=== PATIENT | male | born 1945 | race Caucasian/White ===

== ENCOUNTER 2016-07-25 11:06 | Inpatient (IN) | payer MEDICARE ==
--- NOTE | 2016-07-25 11:48 | ERPHSYRPT ---
- History of Present Illness Time Seen by Provider: 07/25/16 11:36 Source: patient Exam Limitations: no limitations Patient Subjective Stated Complaint: PT ET SON REPORTS THAT PT HAS HAD INCREASED WEAKNESS OVER THE LAST FEW DAYS-PT HAS HAD INCREASED FALLS-INCREASED DIFFICUTLY WALKING-INCREASED INCONTENCE-SON REPORTS INCREASED CONFUSION AT TIMES Triage Nursing Assessment: PT PALE WARM ET [id number] QUESTIONS CORRECTLY-RESP NONLABORED-HARSH INTERMITTANT COUGH NOTED DURING TRIAGE-NO WHEEZES NOTED-ABLE TO ANSWER IN COMPLETE SENTENCES-FACIAL DROOP NOTED WHICH IS NORMAL FOR PT-BRUISING NOTED TO LEFT LOWER ABD-BOWEL SOUNDS PRESENT-BRUISING NOTED TO LEFT HAND-PULSES PRESENT Physician History: This 70-year-old white male arrives with complaint of feeling weak increased falling symptoms going on for the last couple days patient states that he is having pain on his dorsal right hand after falling he is noted to have a bruise on his left anterior lower abdomen he denies any hip pain. Family states that the patient has been having a hard time walking for the last several days and note that he has had increased problems with walking. Patient does not believe he hit his head he did fall yesterday. 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, GERD, past surgical history includes CABG, cardiac catheter, cardiac stents, hernia repair, sent in his kidney, right hip replacement, left thumb surgery Timing/Duration: other (family states patient with problems getting around for one to 2 weeks fell yesterday) Severity: moderate Modifying Factors: Worsens With: cold therapy, eating, immobilization, medication, movement, rest, acetaminophen, ibuprofen, nothing Associated Symptoms: weakness, No nausea, No vomiting, No abdominal pain, No shortness of breath, No heartburn, No diaphoresis, No cough, No chest pain, No fever, No headaches, No loss of appetite, No malaise, No rash, No syncope, No seizure Allergies/Adverse Reactions: NSAIDS (Non-Steroidal Anti-Inflamma Allergy (Verified 07/25/16 11:30) Home Medications: Amlodipine Besylate 10 mg [Norvasc 10 MG] 10 mg PO DAILY 10/14/15 [History] Aspirin/Calcium Carbonate/Mag [Aspirin Buffered 325 mg Tab] 325 mg PO DAILY 02/18 [History] Cholecalciferol (Vitamin D3) [Vitamin D] 1,000 unit PO DAILY 10/14/15 [ History] Clonidine HCl 0.2 mg PO BID 10/14/15 [History] Clopidogrel Bisulfate 75 mg [PLAVIX 75 MG Tablet] 75 mg PO DAILY 10/14/15 [History] Ezetimibe 10 mg [Zetia 10 MG] 10 mg PO DAILY 10/14/15 [History] Fluoxetine HCl 10 mg [Prozac 10 mg] 10 mg PO DAILY 10/14/15 [History] Losartan Potassium 50 mg [Cozaar 50 MG] 50 mg PO DAILY 10/14/15 [History] Omeprazole 20 MG [Prilosec 20 mg] 20 mg PO DAILY 10/14/15 [History] Tamsulosin HCl 0.4 mg PO HS 10/14/15 [History] Hx Tetanus, Diphtheria Vaccination/Date Given: Yes Hx Influenza Vaccination/Date Given: Yes Hx Pneumococcal Vaccination/Date Given: Yes Immunizations Up to Date: Yes - Review of Systems Constitutional: No Fever, No Chills Eyes: No Symptoms Ears, Nose, & Throat: No Symptoms Respiratory: No Cough, No Dyspnea Cardiac: No Chest Pain, No Edema, No Syncope Abdominal/Gastrointestinal: Other (bruising left anterior abdomen), No Abdominal Pain, No Nausea, No Vomiting, No Diarrhea Genitourinary Symptoms: No Dysuria Musculoskeletal: Other (pain right hand) Skin: No Rash Neurological: Other (trouble walking for the last week or so falling) Psychological: No Symptoms Endocrine: No Symptoms All Other Systems: Reviewed and Negative - Past Medical History Pertinent Past Medical History: Yes Neurological History: Stroke ENT History: Other Cardiac History: High Cholesterol, Hypertension, Myocardial Infarction ([place]), Other Respiratory History: No Pertinent History Endocrine Medical History: No Pertinent History Musculoskeletal History: Arthritis, Fractures GI Medical History: GERD History: Other Psycho-Social History: No Pertinent History Male Reproductive Disorders: No Pertinent History Other Medical History: CABG 1999, URETER STENT 2001, BRAIN STEM CVA, HERNIA REPAIR. BLIND IN LEFT EYE - Past Surgical History Past Surgical History: Yes Neuro Surgical History: No Pertinent History Cardiac: Angioplasty, CABG, Cardiac Catheterization, Cardiac Stent Respiratory: No Pertinent History Gastrointestinal: Hernia Repair Genitourinary: Other Musculoskeletal: Joint Replacement, Other Male Surgical History: No Pertinent History Other Surgical History: STENT IN KIDNEY, CABG 1999, R Hip replacement, L thumb surgical repair w/ pin. - Social History Smoking Status: Former smoker Exposure to second hand smoke: No Drug Use: none Patient Lives Alone: No - Nursing Vital Signs Nursing Vital Signs: Initial Vital Signs Temperature 98.5 F Temperature Source Oral Pulse Rate 63 Respiratory Rate 16 Blood Pressure [Right Arm] 103/69 Pain Intensity 0 - Physical Exam General Appearance: no apparent distress, alert Eye Exam: PERRL/EOMI, other (patient's left eye deviates laterally (chronic)) Ears, Nose, Throat Exam: normal ENT inspection, TMs normal, pharynx normal, moist mucous membranes Neck Exam: normal inspection, non-tender, supple, full range of motion Respiratory Exam: normal breath sounds, lungs clear, No respiratory distress Cardiovascular Exam: regular rate/rhythm, normal heart sounds, normal peripheral pulses Gastrointestinal/Abdomen Exam: soft, normal bowel sounds, other (4 cm hematoma left anterior abdomen) Back Exam: normal inspection, normal range of motion, No CVA tenderness, No vertebral tenderness Extremity Exam: other (left hand with erythema and tenderness overlying the second metacarpal phalangeal joint) Neurologic Exam: alert, oriented x 3, cooperative, normal mood/affect, nml cerebellar function, nml station & gait, sensation nml, other (left eye deviates laterally chronically), No motor deficits Skin Exam: normal color, warm, dry, No rash Lymphatic Exam: No adenopathy SpO2 Interpretation: normal (99%) SpO2: 99 Oxygen Delivery: Room Air - Course Nursing assessment & vital signs reviewed: Yes EKG Interpreted by Me: RATE (70 bpm), Other (EKG sinus arrhythmia 70 beats for minute right axis deviation right bundle branch block no acute ST or T wave changes compared to October 25, 2015) - Radiology Exams Left Hand X-ray Interpretation: Discussed w/ radiologist (x-ray left hand: Minimally angulated acute fracture involving the head of the second metacarpal with adjacent soft tissue swelling. Elsewhere, osteeopenia, old proximal thumb fracture, and mild degenerative changes of the base of the first metacarpal) Chest X-ray Interpretation: Discussed w/ radiologist (chest x-ray: Impression: Stable nonacute chest with chronic features) - CT Exams Head CT Interpretation: Discussed w/radiologist (CT head: Again, nonacute senile brain again with old infarcts. New pansinusitis) Ordered Tests: Active Orders 24 hr Category Date Time Status Bedrest ROUTINE Activity 07/25/16 14:05 Active Accucheck STAT Care 07/25/16 11:42 Completed Admission/Status Order ROUTINE Care 07/25/16 14:05 Active Call Admit Doctor for Orders ON ADMISSION Care 07/25/16 14:05 Active Code Status Order ROUTINE Care 07/25/16 14:05 Active EKG-ER Only STAT Care 07/25/16 11:42 Completed IV Care Q6H Care 07/25/16 14:05 Active IV Insertion STAT Care 07/25/16 11:42 Completed Splint STAT Care 07/25/16 13:07 Completed Telemetry ROUTINE Care 07/25/16 14:05 Active Cardiac Diet Diet 07/25/16 Dinner Active CHEST 1 VIEW (PORTABLE) Stat Exams 07/25/16 11:42 Completed HAND (MINIMUM 3 VIEWS) Stat Exams 07/25/16 11:49 Completed HEAD WITHOUT CONTRAST [CT] Stat Exams 07/25/16 11:42 Completed CBC W DIFF AM.LAB Lab 07/26/16 04:00 Ordered CBC W DIFF Stat Lab 07/25/16 11:50 Completed CMP AM.LAB Lab 07/26/16 04:00 Ordered CMP Stat Lab 07/25/16 11:50 Completed TROPONIN Stat Lab 07/25/16 11:50 Completed UA Stat Lab 07/25/16 11:42 Ordered Transfer Order Routine Transfer 07/25/16 13:28 Completed Medication Summary Generic Name Dose Route Start Last Admin Trade Name Freq PRN Reason Stop Dose Admin Potassium Chloride 100 mls @ 50 mls/hr 07/25/16 14:05 Potassium Chloride 20 Meq In Water 100ml IV 07/25/16 18:04 Q2H KRYSTIAN Discontinued Medications Generic Name Dose Route Start Last Admin Trade Name Freq PRN Reason Stop Dose Admin Potassium Bicarbonate 50 meq 07/25/16 12:48 07/25/16 12:58 K-Lyte 25 Meq PO 07/25/16 12:49 50 meq STAT ONE Administration Potassium Bicarbonate Confirm 07/25/16 12:52 K-Lyte 25 Meq Administered 07/25/16 12:53 Dose 50 meq .ROUTE .STK-MED ONE Lab/Rad Data: Laboratory Result Diagrams 07/25/16 11:50 07/25/16 11:50 Laboratory Results 07/25/16 07/25/16 07/25/16 Range/Units 11:50 11:50 11:50 WBC 7.1 (4.0-10.5) K/mm3 RBC 5.23 (4.1-5.6) M/mm3 Hgb 14.2 (12.5-18.0) gm/dl Hct 41.9 L (42-50) % MCV 80.1 (78-100) fl MCH 27.2 (26-32) pg MCHC 33.9 (32-36) g/dl RDW 15.6 H (11.5-14.0) % Plt Count 166 (150-450) K/mm3 MPV 9.9 H (6-9.5) fl Gran % 73.3 H (36.0-66.0) % Lymphocytes % 15.5 L (24.0-44.0) % Monocytes % 9.3 (0.0-12.0) % Eosinophils % 1.8 (0.00-5.0) % Basophils % 0.1 (0.0-0.4) % Basophils # 0.01 (0-0.4) Sodium 126 L (136-145) mEq/L Potassium 2.6 L* (3.5-5.1) mEq/L Chloride 97 L (98-107) mEq/L Carbon Dioxide 18.6 L (21-32) mEq/L Anion Gap 12.3 (5-15) MEQ/L BUN 21 H (9-20) mg/dL Creatinine 1.61 H (0.55-1.30) mg/dl Estimated GFR 45 ML/MIN Glucose 104 (70-110) MG/DL Calcium 8.4 L (8.5-10.1) mg/dL Total Bilirubin 0.5 (0.2-1.0) mg/dL AST 24 (15-37) U/L ALT 15 (12-78) U/L Alkaline Phosphatase 104 (46-116) U/L Troponin I 0.073 H* (0.000-0.056) ng/ml Serum Total Protein 6.7 (6.4-8.2) gm/dL Albumin 3.5 (3.4-5.0) g/dL - Progress Progress: improved Progress Note: 07/25/16 13:04 Patient with a sodium of 126 potassium of 2.6. EKG no acute changes. Troponin slightly elevated 0.073 patient has no chest pain. Head CT no acute changes. X-ray right hand: Minimally angulated acute fracture involving the head of the second metacarpal with adjacent soft tissue swelling. Will place a splint on patient's right hand patient has been given potassium 50 no: Orally case is discussed with Dr. Rahman will place patient on observation telemetry will order K rider 40 mEq to follow with normal saline with 20 mEq per liter to run at 100 mL per hour. Will obtain serial troponins. - Departure Time of Disposition: 13:06 Departure Disposition: Observation Clinical Impression: Frequent falls, Hypokalemia, Weakness Fracture of second metacarpal bone of left hand Qualifiers: Encounter type: initial encounter Fracture type: closed Metacarpal location: unspecified portion of metacarpal Fracture alignment: displaced Qualified Code(s ): S62.301A - Unspecified fracture of second metacarpal bone, left hand, initial encounter for closed fracture Condition: Fair Critical Care Time: No
[2016-07-25 11:57] LABS: BASOPHIL % 0.1 % (0.0-0.4); Eosinophil % 1.8 % (0.00-5.0); Granulocytes % 73.3 % (36.0-66.0); Lymphocytes % 15.5 % (24.0-44.0); Mean Cell Volume 80.1 fl (78-100); Mean Corpuscular Hemoglobin 27.2 pg (26-32); Mean Platelet Volume 9.9 fl (6-9.5); Monocytes % 9.3 % (0.0-12.0); Platelet Count 166 K/mm3 (150-450); Red Blood Count 5.23 M/mm3 (4.1-5.6); Red Cell Distribution Width 15.6 % (11.5-14.0); White Blood Count 7.1 K/mm3 (4.0-10.5)
--- NOTE | 2016-07-25 12:10 | XRAY ---
Indication: Weakness. Status post fall. Multiple contiguous axial images obtained through the head without contrast. Comparison: November 06, 2015. Stable age-appropriate global atrophy, periventricular degenerative micro-ischemia, remote left caudate lacunar infarct, and old right cerebellar infarct. No acute intracranial hemorrhage, abnormal extra-axial fluid collection, or mass effect. Fourth ventricle is midline. Bony calvarium intact. There is now mild/moderate mucosal thickening of both ethmoid, both maxillary, and both ethmoid sinuses with right maxillary sinus fluid leveling. Mastoid air cells are clear. Impression: Again nonacute senile brain again with old infarcts as detailed. New pansinusitis. CTDI 50.75
--- NOTE | 2016-07-25 12:16 | XRAY ---
Indication: Weakness. Falls. Comparison: June 04, 2011. AP chest unchanged again demonstrating calcified granulomas and previous CABG surgery. No focal infiltrate, consolidation, large effusion, or cardiomegaly. Bony thorax intact again with mild degenerative changes. Impression: Stable nonacute chest with chronic features.
--- NOTE | 2016-07-25 12:21 | XRAY ---
Indication: Second digit swelling and bruising. Status post fall. Comparison: None 3 views of the left hand demonstrates minimally angulated acute fracture involving the head of the second metacarpal with adjacent soft tissue swelling. Elsewhere osteopenia, old proximal thumb fracture, and mild degenerative changes of the base of the first metacarpal.
[2016-07-25 12:28] LABS: ALBUMIN 3.5 g/dL (3.4-5.0); ANION GAP 12.3 MEQ/L (5-15); BILIRUBIN,TOTAL 0.5 mg/dL (0.2-1.0); Carbon Dioxide 18.6 mEq/L (21-32); Total Protein 6.7 gm/dL (6.4-8.2)
[2016-07-25 12:34] LABS: Potassium 2.6 mEq/L (3.5-5.1)
[2016-07-25] MEDS ORDERED: K-LYTE 25 MEQ PO ONE (12:48)
[2016-07-25] MEDS ORDERED: K-LYTE 25 MEQ ONE (12:52)
[2016-07-25] MEDS: POTASSIUM CHLORIDE 20 mEq IN WATER 100ML 100 ML IV SCH ×2 (15:24→17:40)
[2016-07-25] MEDS: Sodium Chloride 0.9% W/ 20 mEq KCl/LITER 1,000 ML IV SCH (15:24)
--- NOTE | 2016-07-25 17:14 | PCM.HP ---
History of Present Illness - Chief Complaint Chief Complaint: weakness, falls, hypokalemia, fracture left metacarpal History of Present Illness: is a 70 year old male who resides in assisted living, he has a history of stroke in the past and multiple medical problems. He reports a nonproductive cough with no known fever for 3-4 days. He has felt weak as well and had several falls in the last few days. He was diagnosed with a fracture in the left hand in the ER. Sodium and potassium are low as well on admission. There is some concern with his functional status at this time for assisted living. - Review of Systems Constitutional: Weakness, No Fever, No Chills Respiratory: Cough, No Wheezing Cardiac: No Chest Pain, No Edema, No Syncope Abdominal/Gastrointestinal: No Abdominal Pain, No Nausea, No Vomiting, No Diarrhea Musculoskeletal: Fall, Injury Skin: No Rash Medications & Allergies Home Medications: Home Medication List Amlodipine Besylate 10 mg [Norvasc 10 MG] 10 mg PO DAILY 10/14/15 [History Confirmed 07/25/16] Cholecalciferol (Vitamin D3) [Vitamin D] 1,000 unit PO DAILY 10/14/15 [ History Confirmed 07/25/16] Clonidine HCl 0.2 mg PO BID 10/14/15 [History Confirmed 07/25/16] Clopidogrel Bisulfate 75 mg [PLAVIX 75 MG Tablet] 75 mg PO DAILY 10/14/15 [History Confirmed 07/25/16] Ezetimibe 10 mg [Zetia 10 MG] 10 mg PO DAILY 10/14/15 [History Confirmed ] Fluoxetine HCl 10 mg [Prozac 10 mg] 10 mg PO DAILY 10/14/15 [History Confirmed 07/25/16] Losartan Potassium 50 mg [Cozaar 50 MG] 50 mg PO DAILY 10/14/15 [History Confirmed 07/25/16] Omeprazole 20 MG [Prilosec 20 mg] 20 mg PO DAILY 10/14/15 [History Confirmed ] Tamsulosin HCl 0.4 mg PO HS 10/14/15 [History Confirmed 07/25/16] Aspirin EC 325 mg [Ecotrin 325 MG] 325 mg PO DAILY 07/25/16 [History Confirmed 07/25/16] Medroxyprogesterone Acetate [Depo-Provera] 150 mg IM UD 07/25/16 [History Confirmed 07/25/16] Allergies/Adverse Reactions: Allergies Allergy/AdvReac Type Severity Reaction Status Date / Time NSAIDS (Non-Steroidal Allergy Verified 07/25/16 11:30 Anti-Inflamma - Past Medical History Past Medical History: Yes Neurological History: Stroke ENT History: Other Cardiac History: High Cholesterol, Hypertension, Myocardial Infarction ([place]), Other Respiratory History: No Pertinent History Endocrine Medical History: No Pertinent History Musculoskelatal History: Arthritis, Fractures GI Medical History: GERD History: Other Pyscho-Social History: No Pertinent History Male Reproductive Disorders: No Pertinent History Comment: CABG 1999, URETER STENT 2001, BRAIN STEM CVA, HERNIA REPAIR. BLIND IN LEFT EYE - Past Surgical History Past Surgical History: Yes Neuro Surgical History: No Pertinent History Cardiac History: Angioplasty, CABG, Cardiac Catheterization, Cardiac Stent Respiratory Surgery: No Pertinent History GI Surgical History: Hernia Repair Genitourinary Surgical Hx: Other Musculskeletal Surgical Hx: Joint Replacement, Other Male Surgical History: No Pertinent History Other Surgical History: STENT IN KIDNEY, CABG 1999, R Hip replacement, L thumb surgical repair w/ pin. - Social History Smoking Status: Former smoker Exposure to second hand smoke: No Alcohol: None Drug Use: none - Physical Exam Vital Signs: Vital Signs - 24 hr Temp Pulse Resp BP Pulse Ox 07/25/16 14:25 99 07/25/16 14:10 97.6 F 62 20 112/58 95 07/25/16 13:44 98.5 F 63 16 103/69 96 07/25/16 11:19 97.7 F 80 20 122/67 99 General Appearance: no apparent distress, alert Respiratory Exam: normal breath sounds, lungs clear, No respiratory distress Cardiovascular Exam: regular rate/rhythm Gastrointestinal/Abdomen Exam: soft, normal bowel sounds, No tenderness, No mass Extremity Exam: other (left hand in short arm splint, neurovascularly intact) Results - Labs Lab/Micro Results: Lab Results-Last 24 Hours 07/25/16 Range/Units 15:15 Troponin I 0.084 H* (0.000-0.056) ng/ml Assessment/Plan (1) Hyponatremia Current Visit: Yes Status: Acute Assessment & Plan: will monitor, hydrate with saline, review meds Code(s): E87.1 - HYPO-OSMOLALITY AND HYPONATREMIA (2) Fracture of second metacarpal bone of left hand Current Visit: Yes Status: Acute Qualifiers: Encounter type: initial encounter Fracture type: closed Metacarpal location: unspecified portion of metacarpal Fracture alignment: displaced Qualified Code(s): S62.301A - Unspecified fracture of second metacarpal bone, left hand, initial encounter for closed fracture Code(s): S62.301A - UNSP FRACTURE OF SECOND METACARPAL BONE, LEFT HAND, INIT (3) Frequent falls Current Visit: Yes Status: Acute Assessment & Plan: related to weakness/deconditioning most likely Code(s): R29.6 - REPEATED FALLS (4) Hypokalemia Current Visit: Yes Status: Acute Assessment & Plan: will replace Code(s): E87.6 - HYPOKALEMIA (5) Weakness Current Visit: Yes Status: Acute Assessment & Plan: likely appears chronic in nature, with splint on left hand will likely require a rehab stay. hx cva in the past so mobility is an issue Code(s): R53.1 - WEAKNESS (6) Cough Current Visit: Yes Status: Acute Assessment & Plan: check flu swab Code(s): R05 - COUGH
[2016-07-25] MEDS ORDERED: Tamiflu 75MG Capsule PO SCH (22:00)
[2016-07-25] MEDS: Flomax 0.4 MG PO SCH (22:27)
[2016-07-25] MEDS: Catapres 0.1 MG PO SCH (22:27)
[2016-07-26 00:12] LABS: ANION GAP 13.6 MEQ/L (5-15); Carbon Dioxide 21.3 mEq/L (21-32); Potassium 3.9 mEq/L (3.5-5.1)
[2016-07-26] MEDS: Sodium Chloride 0.9% W/ 20 mEq KCl/LITER 1,000 ML IV SCH ×3 (01:14→21:07)
[2016-07-26 05:45] LABS: BASOPHIL % 0.2 % (0.0-0.4); Eosinophil % 3.7 % (0.00-5.0); Granulocytes % 61.1 % (36.0-66.0); Lymphocytes % 27.3 % (24.0-44.0); Mean Cell Volume 81.4 fl (78-100); Mean Corpuscular Hemoglobin 27.1 pg (26-32); Mean Platelet Volume 9.8 fl (6-9.5); Monocytes % 7.7 % (0.0-12.0); Platelet Count 161 K/mm3 (150-450); Red Blood Count 4.79 M/mm3 (4.1-5.6); Red Cell Distribution Width 15.9 % (11.5-14.0); White Blood Count 5.3 K/mm3 (4.0-10.5)
[2016-07-26 06:27] LABS: ALBUMIN 3.1 g/dL (3.4-5.0); ANION GAP 15.1 MEQ/L (5-15); BILIRUBIN,TOTAL 0.5 mg/dL (0.2-1.0); Carbon Dioxide 22.1 mEq/L (21-32); Potassium 4.2 mEq/L (3.5-5.1); Total Protein 6.7 gm/dL (6.4-8.2)
--- NOTE | 2016-07-26 08:19 | PCM.NOTE ---
Date and Time: 07/26/16814 Subjective Assessment: patient doing ok, no new complaints today. didn't sleep well overnight Objective Exam General Appearance: no apparent distress, alert Respiratory Exam: rhonchi Cardiovascular Exam: regular rate/rhythm, normal heart sounds Gastrointestinal/Abdomen Exam: soft, No tenderness, No mass Extremity Exam: normal inspection, normal range of motion OBJECTIVE DATA Vital Signs: Vital Signs - 24 hr Temp Pulse Resp BP Pulse Ox 07/26/16 08:00 98.5 F 50 L 18 150/72 96 07/26/16 04:00 99.2 F 57 L 18 121/64 95 07/26/16 00:00 99.5 F 68 17 126/59 97 07/25/16 14:25 99 07/25/16 14:10 97.6 F 62 20 112/58 95 07/25/16 13:44 98.5 F 63 16 103/69 96 07/25/16 11:19 97.7 F 80 20 122/67 99 Pain Assessment - Last Documented Pain Intensity 2 Pain Scale Used 0-10 Pain Scale Intake and Output: Intake & Output 07/23/16 07/24/16 07/25/16 07/26/16 11:59 11:59 11:59 11:59 Intake Total 2321 Balance 2321 Weight 91.257 kg Lab Results: Lab Results-Last 24 Hours 07/25/16 07/25/16 07/25/16 Range/Units 15:15 17:39 17:39 WBC (4.0-10.5) K/mm3 RBC (4.1-5.6) M/mm3 Hgb (12.5-18.0) gm/dl Hct (42-50) % MCV (78-100) fl MCH (26-32) pg MCHC (32-36) g/dl RDW (11.5-14.0) % Plt Count (150-450) K/mm3 MPV (6-9.5) fl Gran % (36.0-66.0) % Lymphocytes % (24.0-44.0) % Monocytes % (0.0-12.0) % Eosinophils % (0.00-5.0) % Basophils % (0.0-0.4) % Basophils # (0-0.4) Sodium (136-145) mEq/L Potassium (3.5-5.1) mEq/L Chloride (98-107) mEq/L Carbon Dioxide (21-32) mEq/L Anion Gap (5-15) MEQ/L BUN (9-20) mg/dL Creatinine (0.55-1.30) mg/dl Estimated GFR ML/MIN Glucose (70-110) MG/DL Calcium (8.5-10.1) mg/dL Total Bilirubin (0.2-1.0) mg/dL AST (15-37) U/L ALT (12-78) U/L Alkaline Phosphatase (46-116) U/L Troponin I 0.084 H* 0.075 H* (0.000-0.056) ng/ml Serum Total Protein (6.4-8.2) gm/dL Albumin (3.4-5.0) g/dL Influenza Type A Ag POSITIVE (NEGATIVE) Influenza Type B Ag NEGATIVE (NEGATIVE) RSV (PCR) NEGATIVE (Negative) 07/25/16 07/25/16 07/25/16 Range/Units 21:15 23:50 23:50 WBC (4.0-10.5) K/mm3 RBC (4.1-5.6) M/mm3 Hgb (12.5-18.0) gm/dl Hct (42-50) % MCV (78-100) fl MCH (26-32) pg MCHC (32-36) g/dl RDW (11.5-14.0) % Plt Count (150-450) K/mm3 MPV (6-9.5) fl Gran % (36.0-66.0) % Lymphocytes % (24.0-44.0) % Monocytes % (0.0-12.0) % Eosinophils % (0.00-5.0) % Basophils % (0.0-0.4) % Basophils # (0-0.4) Sodium 140 (136-145) mEq/L Potassium 3.9 (3.5-5.1) mEq/L Chloride 109 H (98-107) mEq/L Carbon Dioxide 21.3 (21-32) mEq/L Anion Gap 13.6 (5-15) MEQ/L BUN 23 H (9-20) mg/dL Creatinine 1.58 H (0.55-1.30) mg/dl Estimated GFR 46 ML/MIN Glucose 94 (70-110) MG/DL Calcium 8.1 L (8.5-10.1) mg/dL Total Bilirubin (0.2-1.0) mg/dL AST (15-37) U/L ALT (12-78) U/L Alkaline Phosphatase (46-116) U/L Troponin I 0.061 H* 0.060 H* (0.000-0.056) ng/ml Serum Total Protein (6.4-8.2) gm/dL Albumin (3.4-5.0) g/dL Influenza Type A Ag (NEGATIVE) Influenza Type B Ag (NEGATIVE) RSV (PCR) (Negative) 07/26/16 07/26/16 07/26/16 Range/Units 02:55 05:32 05:32 WBC 5.3 (4.0-10.5) K/mm3 RBC 4.79 (4.1-5.6) M/mm3 Hgb 13.0 (12.5-18.0) gm/dl Hct 39.0 L (42-50) % MCV 81.4 (78-100) fl MCH 27.1 (26-32) pg MCHC 33.3 (32-36) g/dl RDW 15.9 H (11.5-14.0) % Plt Count 161 (150-450) K/mm3 MPV 9.8 H (6-9.5) fl Gran % 61.1 (36.0-66.0) % Lymphocytes % 27.3 (24.0-44.0) % Monocytes % 7.7 (0.0-12.0) % Eosinophils % 3.7 (0.00-5.0) % Basophils % 0.2 (0.0-0.4) % Basophils # 0.01 (0-0.4) Sodium 142 (136-145) mEq/L Potassium 4.2 (3.5-5.1) mEq/L Chloride 109 H (98-107) mEq/L Carbon Dioxide 22.1 (21-32) mEq/L Anion Gap 15.1 H (5-15) MEQ/L BUN 21 H (9-20) mg/dL Creatinine 1.54 H (0.55-1.30) mg/dl Estimated GFR 48 ML/MIN Glucose 93 (70-110) MG/DL Calcium 8.2 L (8.5-10.1) mg/dL Total Bilirubin 0.5 (0.2-1.0) mg/dL AST 22 (15-37) U/L ALT 12 (12-78) U/L Alkaline Phosphatase 83 (46-116) U/L Troponin I 0.054 (0.000-0.056) ng/ml Serum Total Protein 6.7 (6.4-8.2) gm/dL Albumin 3.1 L (3.4-5.0) g/dL Influenza Type A Ag (NEGATIVE) Influenza Type B Ag (NEGATIVE) RSV (PCR) (Negative) Assessment/Plan (1) Influenza A Current Visit: Yes Status: Acute Assessment & Plan: continue tamiflu, supportive care Code(s): J10.1 - FLU DUE TO OTH IDENT INFLUENZA VIRUS W OTH RESP MANIFEST (2) Hyponatremia Current Visit: Yes Status: Acute Assessment & Plan: resolved Code(s): E87.1 - HYPO-OSMOLALITY AND HYPONATREMIA (3) Fracture of second metacarpal bone of left hand Current Visit: Yes Status: Acute Qualifiers: Encounter type: initial encounter Fracture type: closed Metacarpal location: unspecified portion of metacarpal Fracture alignment: displaced Qualified Code(s): S62.301A - Unspecified fracture of second metacarpal bone, left hand, initial encounter for closed fracture Assessment & Plan: stable in splint Code(s): S62.301A - UNSP FRACTURE OF SECOND METACARPAL BONE, LEFT HAND, INIT (4) Frequent falls Current Visit: Yes Status: Acute Assessment & Plan: will likely need rehab stay after hospitalization Code(s): R29.6 - REPEATED FALLS (5) Hypokalemia Current Visit: Yes Status: Acute Assessment & Plan: resolved Code(s): E87.6 - HYPOKALEMIA (6) Weakness Current Visit: Yes Status: Acute Code(s): R53.1 - WEAKNESS
[2016-07-26] MEDS: Protonix 40MG Tablet PO SCH (09:48)
[2016-07-26] MEDS: PROZAC 10 MG PO SCH (09:48)
[2016-07-26] MEDS: VITAMIN D PO SCH (09:48)
[2016-07-26] MEDS: Zetia 10 MG PO SCH (09:49)
[2016-07-26] MEDS: Ecotrin 325 MG PO SCH (09:49)
[2016-07-26] MEDS: Cozaar 50 MG PO SCH (09:49)
[2016-07-26] MEDS: PLAVIX 75 MG Tablet PO SCH (09:49)
[2016-07-26] MEDS: Catapres 0.1 MG PO SCH ×2 (09:49→20:10)
[2016-07-26] MEDS: OSELTAMIVIR PHOSPHATE 30 MG CAP PO SCH ×2 (09:49→20:31)
[2016-07-26] MEDS: NORVASC 5 MG PO SCH (09:49)
[2016-07-26] MEDS: ROCEPHIN 1 Gm-D5w 50 ml Bag** 50 ML IV SCH (10:18)
[2016-07-26] MEDS: Flomax 0.4 MG PO SCH (20:10)
[2016-07-27] MEDS: Sodium Chloride 0.9% W/ 20 mEq KCl/LITER 1,000 ML IV SCH (06:50)
[2016-07-27] MEDS ORDERED: CORTISONE TP PRN (08:36)
--- NOTE | 2016-07-27 08:42 | PCM.NOTE ---
Date and Time: 07/27/16835 Subjective Assessment: He reports he slept better last night and does feel better than when he came into the hospital. He is planning on going for a rehab stay. He reports he is right handed. - Review of Systems Constitutional: Fatigue Eyes: No Symptoms Ears, Nose, & Throat: No Symptoms Respiratory: Cough Cardiac: No Symptoms Abdominal/Gastrointestinal: No Symptoms Genitourinary Symptoms: No Symptoms Musculoskeletal: Other (left hand in splint.) Skin: No Symptoms Neurological: No Symptoms Objective Exam General Appearance: no apparent distress, alert Neurologic Exam: alert, cooperative, normal mood/affect Skin Exam: normal color, warm, dry, No rash Respiratory Exam: other (few scattered rhonchi, no wheezing, equal breath sounds ) Cardiovascular Exam: regular rate/rhythm, normal heart sounds, No murmur, No friction rub, No gallop Gastrointestinal/Abdomen Exam: soft, normal bowel sounds, No tenderness, No distention, No mass Extremity Exam: other (no c/c/e) OBJECTIVE DATA Vital Signs: Vital Signs - 24 hr Temp Pulse Resp BP Pulse Ox 07/27/16 07:33 98 F 80 22 148/80 97 07/27/16 04:00 98.3 F 82 21 160/81 95 07/26/16 23:38 98.8 F 53 L 18 123/61 96 07/26/16 20:00 98.5 F 77 20 131/68 95 07/26/16 16:45 98.5 F 59 L 17 118/56 93 L 07/26/16 11:44 98.7 F 68 19 120/60 96 Pain Assessment - Last Documented Pain Intensity 0 Pain Scale Used 0-10 Pain Scale Intake and Output: Intake & Output 07/25/16 07/26/16 07/27/16 07/28/16 06:59 06:59 06:59 06:59 Intake Total 2321 1895 Balance 2321 1895 Weight 91.257 kg Multi-Disciplinary Progress Notes: Multi-Disciplinary Progress Notes 07/26/16 13:32 Physical Therapy Note by Mary Cazares PATIENT POSITIVE FOR FLU. STATES HE WOULD RATHER WAIT ON THERAPY INTERVENTION. TOLD HIM I WOULD CHECK ON HIM IN THE A.M. DID APPLY SMALL ICE BAG TO SPLINTED LEFT HAND FOR MP FX WITH LOCALIZED SWELLING APPARENT. PATIENT STATED HE MIGHT HAVE DIFFICULTY TAKING THERAPY HERE ONCE HE WAS DISCHARGED. EXPLAINED TO HIM HE COULD GET THERAPY VIA HOME HEALTH IF HE RETURNED TO HIS ASSISTED LIVING APT., OR HE MAY WANT TO CONSIDER A SHORT TERM ECF STAY FOR MORE INTENSIVE THERAPY TO COUNTER ACUTE WEAKNESS DUE TO SYSTEMIC ILLNESS BEFORE RETURNING HOME. Initialized on 07/26/16 13:32 - END OF NOTE Assessment/Plan (1) Influenza A Current Visit: Yes Status: Acute Assessment & Plan: Continue Tamiflu and supportive treatment. D/C tele today. Code(s): J10.1 - FLU DUE TO OTH IDENT INFLUENZA VIRUS W OTH RESP MANIFEST (2) Fracture of second metacarpal bone of left hand Current Visit: Yes Status: Acute Qualifiers: Encounter type: initial encounter Fracture type: closed Metacarpal location: unspecified portion of metacarpal Fracture alignment: displaced Qualified Code(s): S62.301A - Unspecified fracture of second metacarpal bone, left hand, initial encounter for closed fracture Assessment & Plan: Continue splint. Most likely will need to follow up with ortho as an outpatient. Code(s): S62.301A - UNSP FRACTURE OF SECOND METACARPAL BONE, LEFT HAND, INIT (3) Weakness Current Visit: Yes Status: Acute Assessment & Plan: Plan for rehab after discharge from inpatient stay. Code(s): R53.1 - WEAKNESS (4) Pansinusitis Current Visit: Yes Status: Acute Assessment & Plan: Continue ceftriaxone. 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
[2016-07-27] MEDS: Ecotrin 325 MG PO SCH (10:40)
[2016-07-27] MEDS: PLAVIX 75 MG Tablet PO SCH (10:40)
[2016-07-27] MEDS: OSELTAMIVIR PHOSPHATE 30 MG CAP PO SCH ×2 (10:40→21:33)
[2016-07-27] MEDS: Protonix 40MG Tablet PO SCH (10:40)
[2016-07-27] MEDS: Catapres 0.1 MG PO SCH ×2 (10:40→21:33)
[2016-07-27] MEDS: Zetia 10 MG PO SCH (10:40)
[2016-07-27] MEDS: VITAMIN D PO SCH (10:40)
[2016-07-27] MEDS: Cozaar 50 MG PO SCH (10:40)
[2016-07-27] MEDS: NORVASC 5 MG PO SCH (10:40)
[2016-07-27] MEDS: ROCEPHIN 1 Gm-D5w 50 ml Bag** 50 ML IV SCH (10:41)
[2016-07-27] MEDS: PROZAC 10 MG PO SCH (10:45)
[2016-07-27] MEDS ORDERED: PROVENTIL 2.5 MG/3 ML NEB IH ONE (19:18)
[2016-07-27] MEDS: PROVENTIL 2.5 MG/3 ML NEB IH PRN ×2 (19:22→23:11)
[2016-07-27] MEDS: Flomax 0.4 MG PO SCH (21:33)
--- NOTE | 2016-07-28 07:02 | PCM.DCORD ---
- Discharge Discharge Date: 07/28/16 Disposition: Skilled Care @ [facility] Condition: Fair Prescriptions: New Amox Tr/Potass Clav. 875 mg [Augmentin 875-125 Tablet] 875 mg PO BID # 20 tablet Continue Fluoxetine HCl 10 mg [Prozac 10 mg] 10 mg PO DAILY Ezetimibe 10 mg [Zetia 10 MG] 10 mg PO DAILY Tamsulosin HCl 0.4 mg PO HS Cholecalciferol (Vitamin D3) [Vitamin D] 1,000 unit PO DAILY Omeprazole 20 MG [Prilosec 20 mg] 20 mg PO DAILY Losartan Potassium 50 mg [Cozaar 50 MG] 50 mg PO DAILY Clopidogrel Bisulfate 75 mg [PLAVIX 75 MG Tablet] 75 mg PO DAILY Clonidine HCl 0.2 mg PO BID Amlodipine Besylate 10 mg [Norvasc 10 MG] 10 mg PO DAILY Aspirin EC 325 mg [Ecotrin 325 MG] 325 mg PO DAILY Medroxyprogesterone Acetate [Depo-Provera] 150 mg IM UD Additional Instructions: Please continue home medications. Please take Augmentin BID for 10 days. Follow up with: INÉS MCINTYRE MD [Primary Care Provider] - CHERRIE BROOKS MD [NON-STAFF PHY W/O PRIVILEGES] - 07/31/16 10:00 am ([facility] - [address] [place] [address])
--- NOTE | 2016-07-28 07:21 | PCM.DCORD ---
- Discharge Disposition: Skilled Care @ [facility] Condition: Fair Prescriptions: New Amox Tr/Potass Clav. 875 mg [Augmentin 875-125 Tablet] 875 mg PO BID # 20 tablet Continue Fluoxetine HCl 10 mg [Prozac 10 mg] 10 mg PO DAILY Ezetimibe 10 mg [Zetia 10 MG] 10 mg PO DAILY Tamsulosin HCl 0.4 mg PO HS Cholecalciferol (Vitamin D3) [Vitamin D] 1,000 unit PO DAILY Omeprazole 20 MG [Prilosec 20 mg] 20 mg PO DAILY Losartan Potassium 50 mg [Cozaar 50 MG] 50 mg PO DAILY Clopidogrel Bisulfate 75 mg [PLAVIX 75 MG Tablet] 75 mg PO DAILY Clonidine HCl 0.2 mg PO BID Amlodipine Besylate 10 mg [Norvasc 10 MG] 10 mg PO DAILY Aspirin EC 325 mg [Ecotrin 325 MG] 325 mg PO DAILY Medroxyprogesterone Acetate [Depo-Provera] 150 mg IM UD Additional Instructions: Please continue home medications. Please take Augmentin BID for 10 days. Follow up with: INÉS MCINTYRE MD [Primary Care Provider] - CHERRIE BROOKS MD [NON-STAFF PHY W/O PRIVILEGES] - 07/31/16 10:00 am ([facility] - [address] [place] [address])
[2016-07-28 07:59] VITALS: BP 149/73; PULSE 65; O2SAT 98
[2016-07-28] MEDS: ROCEPHIN 1 Gm-D5w 50 ml Bag** 50 ML IV SCH ×2 (10:53→11:06)
[2016-07-28] MEDS: NORVASC 5 MG PO SCH (10:54)
[2016-07-28] MEDS: Zetia 10 MG PO SCH (10:54)
[2016-07-28] MEDS: PROZAC 10 MG PO SCH (10:54)
[2016-07-28] MEDS: Ecotrin 325 MG PO SCH (10:54)
[2016-07-28] MEDS: Cozaar 50 MG PO SCH (10:54)
[2016-07-28] MEDS: Catapres 0.1 MG PO SCH (10:54)
[2016-07-28] MEDS: VITAMIN D PO SCH (10:54)
[2016-07-28] MEDS: PLAVIX 75 MG Tablet PO SCH (10:55)
[2016-07-28] MEDS: Protonix 40MG Tablet PO SCH (10:55)
[2016-07-28] MEDS: OSELTAMIVIR PHOSPHATE 30 MG CAP PO SCH (10:57)
--- NOTE | 2016-07-30 09:00 | DS ---
DISCHARGE DIAGNOSES: 1) INFLUENZA. 2) BRONCHITIS. 3) FRACTURE OF THE METACARPAL IN THE LEFT HAND. 4) WEAKNESS WITH FALLING. 5) HYPERTENSION. 6) BENIGN PROSTATIC HYPERTROPHY. HISTORY: The patient is a 70 year-old white male patient of Dr. Rahman who had been having problems with weakness and falling. The patient had fallen at home and he was brought into the emergency room. On evaluation the patient was found to be hyponatremic and hypokalemic. He was admitted to the hospital for further evaluation and management. HOSPITAL COURSE: After admission the patient was swabbed for influenza and was found to be positive. It was felt to be too late to begin Tamiflu. However the patient did also have some episodes of productive cough. He was placed empirically on Rocephin and Zithromax. His chest x-ray did not show an infiltrate. His CT scan showed nonacute senile brain with old infarcts and new pansinusitis. The patient was noted to be weak during his stay and was felt to need to have admission to rehab for further strengthening considering his recent falling episodes. The patient was therefore felt to be well enough to go for rehab. On the morning of 07/28/2016, he was discharged home on his usual medications of amlodipine 5 mg a day, Ecotrin 325 mg a day, Catapres 0.1 mg 2 tablets b.i.d., Plavix 75 mg daily, Zetia 10 mg daily, Prozac 10 mg daily, pantoprazole 40 mg daily, Tamsulosin 0.4 mg daily. He was placed on Augmentin 875 mg twice a day for an additional 10 days due to evidence of productive cough and what was felt to be bronchitis. The patient will hopefully eventually return home after a short stay in rehab where he will be followed up in rehab by his primary care physician, Dr. Rahman.
== END 2016-07-28 12:25 | DRG 194 ==
LOC: ED 11:06 → OBSVTOIN 13:59 → MED SURG 13:59
PROVIDERS: ADMIT Family Medicine; ATTEND Family Medicine
DX: J10.1 Influenza due to other identified influenza virus with other respiratory manifestations (principal); E87.1 Hypo-osmolality and hyponatremia; J40 Bronchitis, not specified as acute or chronic; S62.301A Unspecified fracture of second metacarpal bone, left hand, initial encounter for closed fracture; R53.1 Weakness; I10 Essential (primary) hypertension; N40.0 Benign prostatic hyperplasia without lower urinary tract symptoms; E87.6 Hypokalemia; K21.9 Gastro-esophageal reflux disease without esophagitis; M19.90 Unspecified osteoarthritis, unspecified site; J32.4 Chronic pansinusitis; R05 Cough; Z79.899 Other long term (current) drug therapy; Z86.73 Personal history of transient ischemic attack (TIA), and cerebral infarction without residual deficits; I25.2 Old myocardial infarction; Z95.1 Presence of aortocoronary bypass graft; Z98.61 Coronary angioplasty status; R29.6 Repeated falls
CPT/HCPCS: 36000; 36415; 70450; 71010; 73130; 80048; 80053; 82962; 84484; 85025; 87631; 93005; 94640; 94760; 99285; A4570; J0696; J3480; A9270-GY

== ENCOUNTER 2016-10-14 11:33 | Observation (INO) | payer MEDICARE ==
--- NOTE | 2016-10-14 11:50 | ERPHSYRPT ---
- History of Present Illness Time Seen by Provider: 10/14/16 11:42 Source: patient Exam Limitations: no limitations Patient Subjective Stated Complaint: PT REPORTS HE HAS NOT URINATED SINCE LAST NIGHT-REPORTS FULLNESS ET PRESSURE TO LOW ABD-DENIES RECENT ILLNESS Triage Nursing Assessment: PT PINK WARM ET DRY-SLIGHT DISTENTION NOTED-BOWEL SOUNDS PRESENT Physician History: 71-year-old white male arrives from assisted living with complaint of inability to urinate since last night he states that he feels full in the suprapubic region. He also states that he had some blood in his stool last night is not sure if this was from his rectum or from his urine. He denies any other complaints she has no fevers he is not short of breath he has no chest pain he does have suprapubic pressure and inability urinate. Past medical history includes CVA, hyperlipidemia, high blood pressure, myocardial infarction, arthritis, fractures, GERD. Blind left eye Past surgical history includes CABG, ureteral stent, hernia repair, angioplasty , cardiac stent, joint replacement right hip replacement left thumb repair Timing/Duration: yesterday (unable to urinate since last night noted blood in stools last night) Severity: mild Modifying Factors: Improves With: nothing Associated Symptoms: abdominal pain (suprapubic pain), other (unable to urinate, blood in stools not sure if its from urine), No nausea, No vomiting, No shortness of breath, No heartburn, No diaphoresis, No cough, No chills, No chest pain, No fever, No headaches, No loss of appetite, No malaise, No rash, No syncope, No seizure, No weakness Allergies/Adverse Reactions: NSAIDS (Non-Steroidal Anti-Inflamma Allergy (Verified 10/14/16 11:38) Home Medications: Amlodipine Besylate 10 mg [Norvasc 10 MG] 10 mg PO DAILY 10/14/15 [History] Cholecalciferol (Vitamin D3) [Vitamin D] 1,000 unit PO DAILY 10/14/15 [ History] Clonidine HCl 0.2 mg PO BID 10/14/15 [History] Clopidogrel Bisulfate 75 mg [PLAVIX 75 MG Tablet] 75 mg PO DAILY 10/14/15 [History] Ezetimibe 10 mg [Zetia 10 MG] 10 mg PO DAILY 10/14/15 [History] Fluoxetine HCl 10 mg [Prozac 10 mg] 10 mg PO DAILY 10/14/15 [History] Losartan Potassium 50 mg [Cozaar 50 MG] 50 mg PO DAILY 10/14/15 [History] Omeprazole 20 MG [Prilosec 20 mg] 20 mg PO DAILY 10/14/15 [History] Tamsulosin HCl 0.4 mg PO HS 10/14/15 [History] Aspirin EC 325 mg [Ecotrin 325 MG] 325 mg PO DAILY 07/25/16 [History] Medroxyprogesterone Acetate [Depo-Provera] 150 mg IM UD 07/25/16 [History] Minocycline HCl [Minocin] 50 mg PO BID 10/14/16 [History] Hx Tetanus, Diphtheria Vaccination/Date Given: Yes Hx Influenza Vaccination/Date Given: Yes Hx Pneumococcal Vaccination/Date Given: Yes Immunizations Up to Date: Yes - Review of Systems Constitutional: No Fever, No Chills Eyes: No Symptoms Ears, Nose, & Throat: No Symptoms Respiratory: No Cough, No Dyspnea Cardiac: No Chest Pain, No Edema, No Syncope Abdominal/Gastrointestinal: Abdominal Pain (suprapubic pain), Hematochezia ( noted blood in stool not sure from urine), No Nausea, No Vomiting, No Diarrhea, No Constipation, No Hematemesis, No Melena, No Dysphagia Genitourinary Symptoms: Urinary Retention, No Dysuria, No Frequency, No Hematuria, No Incontinence, No Urgency, No Flank Pain, No Testicle Pain, No Penile Discharge Musculoskeletal: No Back Pain, No Neck Pain Skin: No Rash Neurological: No Dizziness, No Focal Weakness, No Sensory Changes Psychological: No Symptoms Endocrine: No Symptoms All Other Systems: Reviewed and Negative - Past Medical History Pertinent Past Medical History: Yes Neurological History: Stroke ENT History: Other Cardiac History: High Cholesterol, Hypertension, Myocardial Infarction ([place]), Other Respiratory History: No Pertinent History Endocrine Medical History: No Pertinent History Musculoskeletal History: Arthritis, Fractures GI Medical History: GERD History: Other Psycho-Social History: No Pertinent History Male Reproductive Disorders: No Pertinent History Other Medical History: CABG 1999, URETER STENT 2001, BRAIN STEM CVA, HERNIA REPAIR. BLIND IN LEFT EYE - Past Surgical History Past Surgical History: Yes Neuro Surgical History: No Pertinent History Cardiac: Angioplasty, CABG, Cardiac Catheterization, Cardiac Stent Respiratory: No Pertinent History Gastrointestinal: Hernia Repair Genitourinary: Other Musculoskeletal: Joint Replacement, Other Male Surgical History: No Pertinent History Other Surgical History: STENT IN KIDNEY, CABG 1999, R Hip replacement, L thumb surgical repair w/ pin. - Social History Smoking Status: Former smoker Exposure to second hand smoke: No Drug Use: none Patient Lives Alone: No - Nursing Vital Signs Nursing Vital Signs: Initial Vital Signs Temperature 97.9 F Temperature Source Oral Pulse Rate 59 Respiratory Rate 16 Blood Pressure [Right Arm] 117/88 Pain Intensity 0 - Physical Exam General Appearance: no apparent distress, alert Eye Exam: PERRL/EOMI, eyes nml inspection Ears, Nose, Throat Exam: normal ENT inspection, TMs normal, pharynx normal, moist mucous membranes Neck Exam: normal inspection, non-tender, supple, full range of motion Respiratory Exam: normal breath sounds, lungs clear, No respiratory distress Cardiovascular Exam: regular rate/rhythm, normal heart sounds, normal peripheral pulses Gastrointestinal/Abdomen Exam: soft, normal bowel sounds, tenderness ( suprapubic tenderness) Back Exam: normal inspection, normal range of motion, No CVA tenderness, No vertebral tenderness Extremity Exam: normal inspection, normal range of motion, pelvis stable Neurologic Exam: alert, oriented x 3, cooperative, normal mood/affect, nml cerebellar function, nml station & gait, sensation nml, No motor deficits Skin Exam: normal color, warm, dry, No rash Lymphatic Exam: No adenopathy SpO2 Interpretation: normal (96%) SpO2: 96 Oxygen Delivery: Room Air Ordered Tests: Active Orders 24 hr Category Date Time Status Catheter-[place] [facility] STAT Care 10/14/16 11:44 Active IV Insertion STAT Care 10/14/16 11:44 Active CBC W DIFF Stat Lab 10/14/16 12:05 Completed CMP Stat Lab 10/14/16 12:05 Completed Occult Blood,Stool Other Stat Lab 10/14/16 12:29 Completed UA W/ MICROSCOPIC Stat Lab 10/14/16 12:45 Completed Transfer Order Routine Transfer 10/14/16 13:43 Ordered Lab/Rad Data: Laboratory Result Diagrams 10/14/16 12:05 10/14/16 12:05 Laboratory Results 10/14/16 10/14/16 10/14/16 Range/Units 12:45 12:29 12:05 WBC (4.0-10.5) K/mm3 RBC (4.1-5.6) M/mm3 Hgb (12.5-18.0) gm/dl Hct (42-50) % MCV (78-100) fl MCH (26-32) pg MCHC (32-36) g/dl RDW (11.5-14.0) % Plt Count (150-450) K/mm3 MPV (6-9.5) fl Gran % (36.0-66.0) % Lymphocytes % (24.0-44.0) % Monocytes % (0.0-12.0) % Eosinophils % (0.00-5.0) % Basophils % (0.0-0.4) % Basophils # (0-0.4) Sodium 138 (136-145) mEq/L Potassium 3.9 (3.5-5.1) mEq/L Chloride 104 (98-107) mEq/L Carbon Dioxide 21.7 (21-32) mEq/L Anion Gap 16.5 H (5-15) MEQ/L BUN 13 (9-20) mg/dL Creatinine 1.42 H (0.55-1.30) mg/dl Estimated GFR 52 ML/MIN Glucose 123 H (70-110) MG/DL Calcium 9.3 (8.5-10.1) mg/dL Total Bilirubin 0.70 (0.2-1.0) mg/dL AST 16 (15-37) U/L ALT 17 (12-78) U/L Alkaline Phosphatase 106 (46-116) U/L Serum Total Protein 8.1 (6.4-8.2) gm/dL Albumin 3.7 (3.4-5.0) g/dL Ur Collection Type VOID Urine Color YELLOW (YELLOW) Urine Appearance CLEAR (CLEAR) Urine pH 6.5 (5-6) Ur Specific [place] 1.015 (1.005-1.025) Urine Protein NEGATIVE (Negative) Urine Glucose (UA) NEGATIVE (NEGATIVE) mg/dL Urine Ketones NEGATIVE (NEGATIVE) Urine Nitrite NEGATIVE (NEGATIVE) Urine Bilirubin NEGATIVE (NEGATIVE) Urine Urobilinogen 0.2 (0-1) mg/dL Urine WBC (Auto) NEGATIVE (NEGATIVE) Urine RBC (Auto) TRACE-LYSED (0-5) [place]/ul Urine Microscopic RBC 0-2 (0-2) /HPF Ur Epithelial Cells RARE (FEW) /HPF Stool Occult Blood NEGATIVE (Negative) Specimen Received 10/14/16 1245 10/14/16 Range/Units 12:05 WBC 17.5 H (4.0-10.5) K/mm3 RBC 5.58 (4.1-5.6) M/mm3 Hgb 15.3 (12.5-18.0) gm/dl Hct 45.4 (42-50) % MCV 81.4 (78-100) fl MCH 27.4 (26-32) pg MCHC 33.7 (32-36) g/dl RDW 15.6 H (11.5-14.0) % Plt Count 253 (150-450) K/mm3 MPV 9.6 H (6-9.5) fl Gran % 89.5 H (36.0-66.0) % Lymphocytes % 5.9 L (24.0-44.0) % Monocytes % 3.9 (0.0-12.0) % Eosinophils % 0.6 (0.00-5.0) % Basophils % 0.1 (0.0-0.4) % Basophils # 0.02 (0-0.4) Sodium (136-145) mEq/L Potassium (3.5-5.1) mEq/L Chloride (98-107) mEq/L Carbon Dioxide (21-32) mEq/L Anion Gap (5-15) MEQ/L BUN (9-20) mg/dL Creatinine (0.55-1.30) mg/dl Estimated GFR ML/MIN Glucose (70-110) MG/DL Calcium (8.5-10.1) mg/dL Total Bilirubin (0.2-1.0) mg/dL AST (15-37) U/L ALT (12-78) U/L Alkaline Phosphatase (46-116) U/L Serum Total Protein (6.4-8.2) gm/dL Albumin (3.4-5.0) g/dL Ur Collection Type Urine Color (YELLOW) Urine Appearance (CLEAR) Urine pH (5-6) Ur Specific [place] (1.005-1.025) Urine Protein (Negative) Urine Glucose (UA) (NEGATIVE) mg/dL Urine Ketones (NEGATIVE) Urine Nitrite (NEGATIVE) Urine Bilirubin (NEGATIVE) Urine Urobilinogen (0-1) mg/dL Urine WBC (Auto) (NEGATIVE) Urine RBC (Auto) (0-5) [place]/ul Urine Microscopic RBC (0-2) /HPF Ur Epithelial Cells (FEW) /HPF Stool Occult Blood (Negative) Specimen Received - Progress Progress: improved Progress Note: 10/14/16 13:21 71-year-old white male with history of CVA, hyperlipidemia high blood pressure, arthritis, GERD Arrives with urinary retention unable to urinate since last night. Patient had suprapubic discomfort patient with a white count of 17 hemoglobin and hematocrit were 15.3 and 45.4 Chemistry was essentially normal BUN was 13 creatinine 1.4 to Davis was placed by the patient's nurses patient with a large amount of urine out ,, 1 L. Patient markedly improved after Davis placement. Patient did state he had some blood in his stools last night. There is no evidence of the blood in his stool his hematemesis is negative urinalysis is unremarkable other than trace of lysed red cells urine was yellow. +The patient is on Minocycline at the detention. 10/14/16 13:26 10/14/16 13:39 I had considered releasing patient home with leg bag with the patient to follow- up with his family doctor tomorrow, however the patient's family states that they do not feel that the patient would be able to take care of himself or manage a leg bag. i've discussed the case with Dr. TAN Blackmon who is demolition expert for Dr. Mcintyre, Will place patient on observation, continue fol Davis provide Evelyn and provide carerful hydration, - Departure Time of Disposition: 13:25 Departure Disposition: Observation Clinical Impression: Urinary retention, Suprapubic abdominal pain, Urinary obstruction Condition: Fair Critical Care Time: No Referrals: INÉS MCINTYRE MD [Primary Care Provider] -
[2016-10-14 12:11] LABS: BASOPHIL % 0.1 % (0.0-0.4); Eosinophil % 0.6 % (0.00-5.0); Granulocytes % 89.5 % (36.0-66.0); Lymphocytes % 5.9 % (24.0-44.0); Mean Cell Volume 81.4 fl (78-100); Mean Corpuscular Hemoglobin 27.4 pg (26-32); Mean Platelet Volume 9.6 fl (6-9.5); Monocytes % 3.9 % (0.0-12.0); Platelet Count 253 K/mm3 (150-450); Red Blood Count 5.58 M/mm3 (4.1-5.6); Red Cell Distribution Width 15.6 % (11.5-14.0); White Blood Count 17.5 K/mm3 (4.0-10.5)
[2016-10-14 12:52] LABS: ALBUMIN 3.7 g/dL (3.4-5.0); ANION GAP 16.5 MEQ/L (5-15); BILIRUBIN,TOTAL 0.7 mg/dL (0.2-1.0); Carbon Dioxide 21.7 mEq/L (21-32); Potassium 3.9 mEq/L (3.5-5.1); Total Protein 8.1 gm/dL (6.4-8.2)
[2016-10-14 13:16] LABS: COMPLETE URINE MICROSCOPIC? YES; Collection Type VOID; Ph 6.5 (5-6)
[2016-10-14 13:17] LABS: Epithelial Cells RARE /HPF (FEW)
[2016-10-14 13:18] LABS: ADD URINE CULTURE? NO (NO)
[2016-10-14] MEDS: Sodium Chloride 0.9% 1000 ML 1,000 ML IV SCH (15:52)
[2016-10-14] MEDS ORDERED: NORCO 5/325 MG PO PRN (16:38)
[2016-10-15] MEDS: Catapres 0.1 MG PO SCH ×3 (00:04→23:26)
[2016-10-15] MEDS: Flomax 0.4 MG PO SCH ×2 (00:05→23:25)
[2016-10-15] MEDS: Sodium Chloride 0.9% 1000 ML 1,000 ML IV SCH (05:28)
[2016-10-15 06:10] LABS: BASOPHIL % 0.1 % (0.0-0.4); Eosinophil % 5.1 % (0.00-5.0); Granulocytes % 69.1 % (36.0-66.0); Lymphocytes % 19.8 % (24.0-44.0); Mean Cell Volume 83.1 fl (78-100); Mean Corpuscular Hemoglobin 27.6 pg (26-32); Mean Platelet Volume 10.2 fl (6-9.5); Monocytes % 5.9 % (0.0-12.0); Platelet Count 210 K/mm3 (150-450); Red Blood Count 4.68 M/mm3 (4.1-5.6); Red Cell Distribution Width 15.5 % (11.5-14.0); White Blood Count 10.7 K/mm3 (4.0-10.5)
--- NOTE | 2016-10-15 07:47 | PCM.HP ---
History of Present Illness - Chief Complaint Chief Complaint: Urinary Retention Date: 10/15/16 History of Present Illness: is a 71 year old male. with significant cognitive and coordination difficulties following a stroke living in assisted living when he had new onset urinary retention that was relieved last night with a Davis place and return of 1 L of urine. He denies any previous difficulty and denies any new medications prior to the event. When the Davis was placed he also had several bowel movements following. He does not have the ability to manipulate the leg bag an empty on his own presently and was unable to have any help available to do this at home and thus was admitted of observation and evaluation of the obstruction as well as training in caring for the leg bag. - Review of Systems Constitutional: No Fever, No Chills Eyes: No Symptoms Ears, Nose, & Throat: No Symptoms Respiratory: No Cough, No Short Of Breath Cardiac: No Chest Pain, No Edema, No Syncope Abdominal/Gastrointestinal: No Abdominal Pain, No Nausea, No Vomiting, No Diarrhea Genitourinary Symptoms: No Dysuria Musculoskeletal: No Back Pain, No Neck Pain Skin: No Rash Neurological: No Dizziness, No Focal Weakness, No Sensory Changes Psychological: No Symptoms Endocrine: No Symptoms Hematologic/Lymphatic: No Symptoms Immunological/Allergic: No Symptoms Medications & Allergies Home Medications: Home Medication List Amlodipine Besylate 10 mg [Norvasc 10 MG] 10 mg PO DAILY 10/14/15 [History Confirmed 10/14/16] Cholecalciferol (Vitamin D3) [Vitamin D] 1,000 unit PO DAILY 10/14/15 [ History Confirmed 10/14/16] Clonidine HCl 0.2 mg PO BID 10/14/15 [History Confirmed 10/14/16] Clopidogrel Bisulfate 75 mg [PLAVIX 75 MG Tablet] 75 mg PO DAILY 10/14/15 [History Confirmed 10/14/16] Ezetimibe 10 mg [Zetia 10 MG] 10 mg PO DAILY 10/14/15 [History Confirmed 03/22] Fluoxetine HCl 10 mg [Prozac 10 mg] 10 mg PO DAILY 10/14/15 [History Confirmed 10/14/16] Losartan Potassium 50 mg [Cozaar 50 MG] 50 mg PO DAILY 10/14/15 [History Confirmed 10/14/16] Omeprazole 20 MG [Prilosec 20 mg] 20 mg PO DAILY 10/14/15 [History Confirmed 03/22] Tamsulosin HCl 0.4 mg PO HS 10/14/15 [History Confirmed 10/14/16] Aspirin EC 325 mg [Ecotrin 325 MG] 325 mg PO DAILY 07/25/16 [History Confirmed 10/14/16] Medroxyprogesterone Acetate [Depo-Provera] 150 mg IM UD 07/25/16 [History Confirmed 10/14/16] Minocycline HCl [Minocin] 50 mg PO BID 10/14/16 [History Confirmed 10/14/16] Allergies/Adverse Reactions: Allergies Allergy/AdvReac Type Severity Reaction Status Date / Time NSAIDS (Non-Steroidal Allergy Verified 10/14/16 11:38 Anti-Inflamma - Past Medical History Past Medical History: Yes Neurological History: Stroke ENT History: Other Cardiac History: High Cholesterol, Hypertension, Myocardial Infarction ([place]), Other Respiratory History: No Pertinent History Endocrine Medical History: No Pertinent History Musculoskelatal History: Arthritis, Fractures GI Medical History: GERD History: Other Pyscho-Social History: No Pertinent History Male Reproductive Disorders: No Pertinent History Comment: CABG 1999, URETER STENT 2001, BRAIN STEM CVA, HERNIA REPAIR x 2, BLIND IN LEFT EYE - Past Surgical History Past Surgical History: Yes Neuro Surgical History: No Pertinent History Cardiac History: Angioplasty, CABG, Cardiac Catheterization, Cardiac Stent Respiratory Surgery: No Pertinent History GI Surgical History: Hernia Repair Genitourinary Surgical Hx: Other Musculskeletal Surgical Hx: Joint Replacement, Other Male Surgical History: No Pertinent History Other Surgical History: STENT IN KIDNEY, CABG 1999, R Hip replacement, L thumb surgical repair w/ pin, right hip replacement - Social History Smoking Status: Never smoker Exposure to second hand smoke: No Alcohol: None Drug Use: none - Physical Exam Vital Signs: Vital Signs - 24 hr Temp Pulse Resp BP Pulse Ox 10/15/16 04:00 98.5 F 47 L 20 136/63 94 L 10/15/16 00:17 98.8 F 58 L 18 147/69 95 10/14/16 20:00 98.9 F 64 18 126/61 94 L 10/14/16 15:07 98.6 F 57 L 20 144/64 94 L 10/14/16 14:44 98.6 F 58 L 20 144/64 94 L 10/14/16 14:18 57 L 20 113/64 95 10/14/16 13:46 96 10/14/16 13:27 59 L 16 117/88 96 10/14/16 11:34 97.9 F 100 H 18 122/79 96 General Appearance: no apparent distress, alert Neurologic Exam: alert, oriented x 3, cooperative, normal mood/affect, sensation nml, motor deficits, sensory deficit, No nml cerebellar function, No nml station & gait Eye Exam: PERRL/EOMI, eyes nml inspection Ears, Nose, Throat Exam: normal ENT inspection, pharynx normal, moist mucous membranes Neck Exam: normal inspection, non-tender, supple, full range of motion Respiratory Exam: normal breath sounds, lungs clear, No respiratory distress Cardiovascular Exam: regular rate/rhythm, normal heart sounds, normal peripheral pulses Gastrointestinal/Abdomen Exam: soft, normal bowel sounds, No tenderness, No mass Male Genitalia Exam: other (Davis with clear yellow urine) Back Exam: normal inspection, normal range of motion, No CVA tenderness, No vertebral tenderness Extremity Exam: normal inspection, normal range of motion, pelvis stable Skin Exam: normal color, warm, dry, No rash Lymphatic Exam: No adenopathy Results - Labs Lab/Micro Results: Lab Results-Last 24 Hours 10/15/16 Range/Units 05:15 WBC 10.7 H (4.0-10.5) K/mm3 RBC 4.68 (4.1-5.6) M/mm3 Hgb 12.9 (12.5-18.0) gm/dl Hct 38.9 L (42-50) % MCV 83.1 (78-100) fl MCH 27.6 (26-32) pg MCHC 33.2 (32-36) g/dl RDW 15.5 H (11.5-14.0) % Plt Count 210 (150-450) K/mm3 MPV 10.2 H (6-9.5) fl Gran % 69.1 H (36.0-66.0) % Lymphocytes % 19.8 L (24.0-44.0) % Monocytes % 5.9 (0.0-12.0) % Eosinophils % 5.1 H (0.00-5.0) % Basophils % 0.1 (0.0-0.4) % Basophils # 0.01 (0-0.4) Assessment/Plan (1) Urinary retention Current Visit: Yes Status: Acute Assessment & Plan: we will see if he can use the Davis leg bag then d/c to follow up with urology discussed additional option of trial of d/c the catheter and trial of voiding with check for residual if unable to care for the bag at home. Code(s): R33.9 - RETENTION OF URINE, UNSPECIFIED (2) Leukocytosis Current Visit: Yes Status: Acute Code(s): D72.829 - ELEVATED WHITE BLOOD CELL COUNT, UNSPECIFIED (3) Frequent falls Current Visit: Yes Status: Chronic Code(s): R29.6 - REPEATED FALLS (4) History of stroke Current Visit: Yes Status: Acute Code(s): Z86.73 - PRSNL HX OF TIA (TIA), AND CEREB INFRC W/O RESID DEFICITS
[2016-10-15] MEDS: Protonix 40MG Tablet PO SCH (10:07)
[2016-10-15] MEDS: Ecotrin 325 MG PO SCH (10:07)
[2016-10-15] MEDS: NORVASC 5 MG PO SCH (10:07)
[2016-10-15] MEDS: Cozaar 50 MG PO SCH (10:07)
[2016-10-15] MEDS: VITAMIN D PO SCH (10:07)
[2016-10-15] MEDS: Zetia 10 MG PO SCH (10:07)
[2016-10-15] MEDS: PROZAC 10 MG PO SCH (10:08)
[2016-10-15] MEDS: PLAVIX 75 MG Tablet PO SCH (10:08)
[2016-10-15] MEDS: MINOCYCLINE HCL 50 MG PO SCH ×2 (10:08→23:26)
[2016-10-15] MEDS: ENOXAPARIN SODIUM SQ SCH (10:08)
[2016-10-15 10:59] LABS: ALBUMIN 2.9 g/dL (3.4-5.0); ANION GAP 17.1 MEQ/L (5-15); BILIRUBIN,TOTAL 0.6 mg/dL (0.2-1.0); Potassium 3.9 mEq/L (3.5-5.1); Total Protein 6.3 gm/dL (6.4-8.2)
[2016-10-16] MEDS: Zetia 10 MG PO SCH (09:08)
[2016-10-16] MEDS: VITAMIN D PO SCH (09:08)
[2016-10-16] MEDS: PROZAC 10 MG PO SCH (09:08)
[2016-10-16] MEDS: Protonix 40MG Tablet PO SCH (09:08)
[2016-10-16] MEDS: PLAVIX 75 MG Tablet PO SCH (09:08)
[2016-10-16] MEDS: Cozaar 50 MG PO SCH (09:08)
[2016-10-16] MEDS: Catapres 0.1 MG PO SCH (09:09)
[2016-10-16] MEDS: ENOXAPARIN SODIUM SQ SCH (09:09)
[2016-10-16] MEDS: Ecotrin 325 MG PO SCH (09:09)
[2016-10-16] MEDS: MINOCYCLINE HCL 50 MG PO SCH (09:14)
[2016-10-16] MEDS: NORVASC 5 MG PO SCH (09:17)
--- NOTE | 2016-10-16 09:50 | PCM.DCORD ---
- Discharge Discharge Date: 10/16/16 Disposition: XFER OTHER Condition: Fair Prescriptions: New Finasteride 5 mg [Proscar 5 MG] 5 mg PO DAILY #30 tablet Continue Fluoxetine HCl 10 mg [Prozac 10 mg] 10 mg PO DAILY Ezetimibe 10 mg [Zetia 10 MG] 10 mg PO DAILY Cholecalciferol (Vitamin D3) [Vitamin D] 1,000 unit PO DAILY Omeprazole 20 MG [Prilosec 20 mg] 20 mg PO DAILY Losartan Potassium 50 mg [Cozaar 50 MG] 50 mg PO DAILY Clopidogrel Bisulfate 75 mg [PLAVIX 75 MG Tablet] 75 mg PO DAILY Clonidine HCl 0.2 mg PO BID Amlodipine Besylate 10 mg [Norvasc 10 MG] 10 mg PO DAILY Aspirin EC 325 mg [Ecotrin 325 MG] 325 mg PO DAILY Medroxyprogesterone Acetate [Depo-Provera] 150 mg IM UD Minocycline HCl [Minocin] 50 mg PO BID Changed Tamsulosin HCl 0.8 mg PO HS #60 cap.er.24h Follow up with: INÉS MCINTYRE MD [Primary Care Provider] - 10/22/16 10:45 am LUIS FELIPE NP [ALLIED HEALTH PROFESSION STAFF] - 10/25/16 2:45 pm ( [facility])
[2016-10-16] MEDS ORDERED: Proscar 5 MG PO SCH (10:00)
[2016-10-16 11:09] VITALS: BP 136/59; PULSE 56; O2SAT 94
[2016-10-17 02:29] LABS: Prostate Specific Antigen 1.68 ng/mL (<=6.50)
--- NOTE | 2016-10-17 20:27 | PCM.DS ---
Discharge Summary Date of Admission: 10/14/16 14:35 Date of Discharge: 10/16/16 Admitting Physician: ANKUR WOO Primary Care Provider: INÉS MCINTYRE ORTIZ Allergies Allergies NSAIDS (Non-Steroidal Anti-Inflamma Allergy (Verified 10/14/16 11:38) Hospital Summary - Hospital Course Hospital Course: He lives in assisted living following a stroke affectin ghis vision coordination and movement in general. He has had progressively worse urinating problems and has been incontinent with wearing depends but was unable to urinate for the day prior to presentation having significant pain a Davis in ED revealed over 1 L of urine retention. It was left in however he does not have the ability to empty this himself and was placed in observation. He was attempted to be taught how to empty this on his own but was unable to do this and we discussed options with the patient and the Davis was removed overnight and he was continued to be incontinent of urine with no pain as per his previous. We checked psa that is normal and increased flomax to 0.8mg and added finasteride and will have urology follow up. - Vitals & Intake/Output Vital Signs: Vital Signs Temperature 97.7 F 10/16/16 11:06 Pulse Rate 56 L 10/16/16 11:06 Respiratory Rate 18 10/16/16 11:06 Blood Pressure 136/59 10/16/16 11:06 O2 Sat by Pulse Oximetry 94 L 10/16/16 11:06 Intake & Output: Intake & Output 10/15/16 10/16/16 10/17/16 10/18/16 11:59 11:59 11:59 11:59 Intake Total 2007 480 Output Total 1250 120 Balance 757 360 Weight 94.529 kg 95.164 kg - Lab Result Diagrams: 10/15/16 05:15 10/15/16 05:15 Lab Results-Last 24 Hrs: Lab Results-Last 24 Hours 10/16/16 Range/Units 08:10 Prostate Specific Ag 1.68 (<=6.50) ng/mL Free PSA 27 % Discharge Exam General Appearance: no apparent distress, alert Neurologic Exam: alert, oriented x 3, cooperative, normal mood/affect, motor deficits, sensory deficit, No nml cerebellar function, No sensation nml Skin Exam: normal color, warm, dry Eye Exam: No PERRL, No EOMI Ears, Nose, Throat Exam: normal ENT inspection, pharynx normal, moist mucous membranes Neck Exam: normal inspection, non-tender, supple, full range of motion Respiratory Exam: normal breath sounds, lungs clear, No respiratory distress Cardiovascular Exam: regular rate/rhythm, normal heart sounds Gastrointestinal/Abdomen Exam: soft, No tenderness, No mass Extremity Exam: normal inspection, normal range of motion Back Exam: normal inspection, normal range of motion, No CVA tenderness, No vertebral tenderness Male Genitalia Exam: deferred Rectal Exam: deferred Final Diagnosis/Problem List - Final Discharge Diagnosis/Problem (1) Urinary retention Status: Acute (2) Leukocytosis Status: Acute (3) Frequent falls Status: Chronic (4) History of stroke Status: Acute - Discharge Discharge Date: 10/17/16 Disposition: Home Health @ [facility] Condition: Fair Prescriptions: New Finasteride 5 mg [Proscar 5 MG] 5 mg PO DAILY #30 tablet Continue Fluoxetine HCl 10 mg [Prozac 10 mg] 10 mg PO DAILY Ezetimibe 10 mg [Zetia 10 MG] 10 mg PO DAILY Cholecalciferol (Vitamin D3) [Vitamin D] 1,000 unit PO DAILY Omeprazole 20 MG [Prilosec 20 mg] 20 mg PO DAILY Losartan Potassium 50 mg [Cozaar 50 MG] 50 mg PO DAILY Clopidogrel Bisulfate 75 mg [PLAVIX 75 MG Tablet] 75 mg PO DAILY Clonidine HCl 0.2 mg PO BID Amlodipine Besylate 10 mg [Norvasc 10 MG] 10 mg PO DAILY Aspirin EC 325 mg [Ecotrin 325 MG] 325 mg PO DAILY Medroxyprogesterone Acetate [Depo-Provera] 150 mg IM UD Minocycline HCl [Minocin] 50 mg PO BID Changed Tamsulosin HCl 0.8 mg PO HS #60 cap.er.24h Instructions: Urinary Retention in Men Additional Instructions: [facility] WILL COME OUT FOR A VISIT TOMORROW, 10/17/16. YOU MAY REACH THEM AT ext [phone] FOR ANY NEEDS. Follow up with: INÉS MCINTYRE MD [Primary Care Provider] - 10/22/16 10:45 am LUIS FELIPE NP [ALLIED HEALTH PROFESSION STAFF] - 10/25/16 2:45 pm ( [facility]) Forms: Discharge Instructions
== END 2016-10-16 12:00 | disposition home health service (06) ==
LOC: ED 11:33 → MED SURG 14:35
PROVIDERS: ADMIT Family Medicine; ATTEND Family Medicine
DX: R33.9 Retention of urine, unspecified (principal); D72.829 Elevated white blood cell count, unspecified; R29.6 Repeated falls; I10 Essential (primary) hypertension; K21.9 Gastro-esophageal reflux disease without esophagitis; Z86.73 Personal history of transient ischemic attack (TIA), and cerebral infarction without residual deficits; Z79.899 Other long term (current) drug therapy; Z95.1 Presence of aortocoronary bypass graft
CPT/HCPCS: 36000; 36415; 51702; 80053; 81000; 82272; 84153; 84154; 85025; 99285; G0378; J1650; A9270-GY

== ENCOUNTER 2017-07-01 02:28 | Emergency (ER) | payer MEDICARE ==
[2017-07-01] MEDS ORDERED: MORPHINE SULFATE 2 MG INJ IV ONE (03:00)
--- NOTE | 2017-07-01 03:00 | ERPHSYRPT ---
- History of Present Illness Time Seen by Provider: 07/01/17 02:50 Source: patient Exam Limitations: no limitations Patient Subjective Stated Complaint: pt states he fell earlier tonight and hurt his lt wrist and shoulder Triage Nursing Assessment: pt alert and oriented, asnwers questions approp. pt arrive per ambulance, transfer to [facility] with assist of 1. respirations nonlabored wiht lungs cta. tenderness noted to lt wrist. mild swelling and bruising noted to lt wrist Physician History: 71 y/o male brought in by ambulance from assisted living for falling this morning. Pt states that he lost his balance and fell on his left wrist and left shoulder. Pt describes the pain as sharp, constant, 8/10 and pt has not taken any pain meds. Pt denies any dizziness, chest pain, shortness of breath, or palpitations. Pt denies any head injury or LOC. Occurred: just prior to arrival Reason for Fall: lost balance Injuries/Pain Location: upper extremity Loss of Consciousness: no loss of consciousness Quality: sharpness Severity of Pain-Max: severe Severity of Pain-Current: severe Modifying Factors: Improves With: nothing Associated Symptoms (Fall): denies symptoms Allergies/Adverse Reactions: NSAIDS (Non-Steroidal Anti-Inflamma Allergy (Verified 07/01/17 02:49) Home Medications: Amlodipine Besylate 10 mg [Norvasc 10 MG] 10 mg PO DAILY 10/14/15 [History] Cholecalciferol (Vitamin D3) [Vitamin D] 1,000 unit PO DAILY 10/14/15 [ History] Clonidine HCl 0.2 mg PO BID 10/14/15 [History] Clopidogrel Bisulfate 75 mg [PLAVIX 75 MG Tablet] 75 mg PO DAILY 10/14/15 [History] Ezetimibe 10 mg [Zetia 10 MG] 10 mg PO DAILY 10/14/15 [History] Fluoxetine HCl 10 mg [Prozac 10 mg] 10 mg PO DAILY 10/14/15 [History] Losartan Potassium 50 mg [Cozaar 50 MG] 50 mg PO DAILY 10/14/15 [History] Omeprazole 20 MG [Prilosec 20 mg] 20 mg PO DAILY 10/14/15 [History] Aspirin EC 325 mg [Ecotrin 325 MG] 325 mg PO DAILY 07/25/16 [History] Medroxyprogesterone Acetate [Depo-Provera] 150 mg IM UD 07/25/16 [History] Minocycline HCl [Minocin] 50 mg PO BID 10/14/16 [History] Hx Tetanus, Diphtheria Vaccination/Date Given: Yes Hx Influenza Vaccination/Date Given: Yes Hx Pneumococcal Vaccination/Date Given: Yes Immunizations Up to Date: Yes - Review of Systems Constitutional: No Fever, No Chills Eyes: No Symptoms Ears, Nose, & Throat: No Symptoms Respiratory: No Cough, No Dyspnea Cardiac: No Chest Pain, No Edema, No Syncope Abdominal/Gastrointestinal: No Abdominal Pain, No Nausea, No Vomiting, No Diarrhea Genitourinary Symptoms: No Dysuria Musculoskeletal: Fall, Injury, Joint Pain, Joint Swelling, No Back Pain, No Neck Pain Skin: No Rash Neurological: No Dizziness, No Focal Weakness, No Sensory Changes Psychological: No Symptoms Endocrine: No Symptoms All Other Systems: Reviewed and Negative - Past Medical History Pertinent Past Medical History: Yes Neurological History: Stroke ENT History: Other Cardiac History: High Cholesterol, Hypertension, Myocardial Infarction ([place]), Other Respiratory History: No Pertinent History Endocrine Medical History: No Pertinent History Musculoskeletal History: Arthritis, Fractures GI Medical History: GERD History: Other Psycho-Social History: No Pertinent History Male Reproductive Disorders: No Pertinent History Other Medical History: CABG 1999, URETER STENT 2001, BRAIN STEM CVA, HERNIA REPAIR x 2, BLIND IN LEFT EYE - Past Surgical History Past Surgical History: Yes Neuro Surgical History: No Pertinent History Cardiac: Angioplasty, CABG, Cardiac Catheterization, Cardiac Stent Respiratory: No Pertinent History Gastrointestinal: Hernia Repair Genitourinary: Other Musculoskeletal: Joint Replacement, Other Male Surgical History: No Pertinent History Other Surgical History: STENT IN KIDNEY, CABG 1999, R Hip replacement, L thumb surgical repair w/ pin, right hip replacement - Social History Smoking Status: Never smoker Exposure to second hand smoke: No Drug Use: none Patient Lives Alone: No (assisted living) - Nursing Vital Signs Nursing Vital Signs: Initial Vital Signs Temperature 98.0 F 07/01/17 02:40 Pulse Rate 58 L 07/01/17 02:40 Respiratory Rate 16 07/01/17 02:40 Blood Pressure 167/79 07/01/17 02:40 O2 Sat by Pulse Oximetry 96 07/01/17 02:40 Pain Scale Pain Intensity 7 - Ericka Coma Score Best Eye Response (Ericka): (4) open spontaneously Best Verbal Response (Ericka): (5) oriented Best Motor Response (Ericka): (6) obeys commands Hermon Total: 15 - Physical Exam General Appearance: no apparent distress, alert Head Injury: no evidence of injury Eye Exam: PERRL/EOMI ENT Exam: airway nml Neck Exam: supple, trachea midline, normal inspection, No tenderness Respiratory/Chest Exam: normal breath sounds, No chest tenderness, No respiratory distress Cardiovascular Exam: normal heart sounds, regular rate/rhythm Gastrointestinal Exam: soft, normal bowel sounds, No tenderness, No distention, No guarding, No ecchymosis Back Exam: normal inspection, normal range of motion, No vertebral tenderness Extremity Exam: pelvis stable, bony point tenderness, pain with movement, swelling, tenderness, No deformities Neurologic Exam: alert, oriented x 3, cooperative, sensation nml, No motor deficits Skin Exam: normal color, warm, dry SpO2: 96 Oxygen Delivery: Room Air - Course Nursing assessment & vital signs reviewed: Yes EKG Interpreted by Me: RATE (hr 53), Right Bundle Branch Block Ordered Tests: Active Orders 24 hr Category Date Time Status EKG-ER Only STAT Care 07/01/17 02:55 Active IV Insertion STAT Care 07/01/17 02:55 Active Splint STAT Care 07/01/17 04:02 Active HUMERUS Stat Exams 07/01/17 04:13 Taken SHOULDER Stat Exams 07/01/17 04:14 Taken WRIST (MIN 3 VIEWS) Stat Exams 07/01/17 04:13 Taken CBC W DIFF Stat Lab 07/01/17 03:09 Completed CMP Stat Lab 07/01/17 03:09 Completed TROPONIN Q3H Lab 07/01/17 03:09 Completed TROPONIN Q3H Lab 07/01/17 06:00 Ordered TROPONIN Q3H Lab 07/01/17 09:00 Ordered TROPONIN Q3H Lab 07/01/17 12:00 Ordered TROPONIN Q3H Lab 07/01/17 15:00 Ordered Medication Summary Discontinued Medications Generic Name Dose Route Start Last Admin Trade Name Freq PRN Reason Stop Dose Admin Hydrocodone Bitart/Acetaminophen 1 tab 07/01/17 04:05 [place] 5/325 Mg PO 07/01/17 04:06 STAT ONE Morphine Sulfate 2 mg 07/01/17 03:00 07/01/17 03:33 Morphine Sulfate 2 Mg Inj IV 07/01/17 03:01 2 mg STAT ONE Administration Morphine Sulfate Confirm 07/01/17 03:09 Morphine Sulfate 2 Mg Inj Administered 07/01/17 03:10 Dose 2 mg .ROUTE .STK-MED ONE Ondansetron HCl 4 mg 07/01/17 03:01 07/01/17 03:33 Zofran 4 Mg/2 Ml Vial IV 07/01/17 03:02 4 mg STAT ONE Administration Ondansetron HCl Confirm 07/01/17 03:09 Zofran 4 Mg/2 Ml Vial Administered 07/01/17 03:10 Dose 4 mg .ROUTE .STK-MED ONE Lab/Rad Data: Laboratory Result Diagrams 07/01/17 03:09 07/01/17 03:09 Laboratory Results 07/01/17 07/01/17 07/01/17 Range/Units 03:09 03:09 03:09 WBC 12.8 H (4.0-10.5) K/mm3 RBC 5.21 (4.1-5.6) M/mm3 Hgb 14.4 (12.5-18.0) gm/dl Hct 42.4 (42-50) % MCV 81.4 (78-100) fl MCH 27.6 (26-32) pg MCHC 34.0 (32-36) g/dl RDW 15.0 H (11.5-14.0) % Plt Count 212 (150-450) K/mm3 MPV 9.1 (6-9.5) fl Gran % 67.7 H (36.0-66.0) % Lymphocytes % 17.4 L (24.0-44.0) % Monocytes % 5.2 (0.0-12.0) % Eosinophils % 9.5 H (0.00-5.0) % Basophils % 0.2 (0.0-0.4) % Basophils # 0.03 (0-0.4) Sodium 145 (136-145) mEq/L Potassium 3.4 L (3.5-5.1) mEq/L Chloride 106 (98-107) mEq/L Carbon Dioxide 23.4 (21-32) mEq/L Anion Gap 19.4 H (5-15) MEQ/L BUN 14 (9-20) mg/dL Creatinine 1.48 H (0.55-1.30) mg/dl Estimated GFR 50 ML/MIN Glucose 126 H (70-110) MG/DL Calcium 9.2 (8.5-10.1) mg/dL Total Bilirubin 0.40 (0.2-1.0) mg/dL AST 17 (15-37) U/L ALT 21 (12-78) U/L Alkaline Phosphatase 107 (46-116) U/L Troponin I 0.027 (0.000-0.056) ng/ml Serum Total Protein 7.6 (6.4-8.2) gm/dL Albumin 3.9 (3.4-5.0) g/dL - Progress Progress: improved Progress Note: 07/01/17 04:05 The shoulder x ray, humerus x ray and wrist x ray do not show any acute fracture. The rest of the labs are unremarkable. The patient is still having wrist pain and will be giving a dose of norco prior to being sent back to assisted living. Pt will also be placed in a cock up splint. - Departure Time of Disposition: 04:07 Departure Disposition: Home Clinical Impression: Fall Qualifiers: Encounter type: initial encounter Qualified Code(s): W19.XXXA - Unspecified fall, initial encounter Wrist pain Qualifiers: Laterality: left Qualified Code(s): M25.532 - Pain in left wrist Condition: Stable Critical Care Time: No Referrals: INÉS MCINTYRE MD [Primary Care Provider] - Instructions: Preventing Falls, Common Wrist Injuries (DC) Additional Instructions: Follow up with your primary care doctor in the next few days for any additional recommendations. Prescriptions: Hydrocodone Bit/Acetaminophen [[place] 5-325 Tablet] 1 each PO QID PRN #12 tablet MDD 4 PRN Reason: Pain
[2017-07-01] MEDS ORDERED: Zofran 4 MG/2 ML VIAL IV ONE (03:01)
[2017-07-01] MEDS ORDERED: Zofran 4 MG/2 ML VIAL ONE (03:09)
[2017-07-01] MEDS ORDERED: MORPHINE SULFATE 2 MG INJ ONE (03:09)
[2017-07-01 03:13] LABS: BASOPHIL % 0.2 % (0.0-0.4); Basophil (Absolute #) 0.03 (0-0.4); Eosinophil % 9.5 % (0.00-5.0); Eosinophil (Absolute #) 1.22 (0-0.5); Granulocyte Absolute (ANC) 8.69 (1.4-6.9); Granulocytes % 67.7 % (36.0-66.0); Hematocrit 42.4 % (42-50); Hemoglobin 14.4 gm/dl (12.5-18.0); Lymphocyte (Absolute #) 2.23 (1.0-4.6); Lymphocytes % 17.4 % (24.0-44.0); Mean Cell Volume 81.4 fl (78-100); Mean Corpuscular Hemoglobin 27.6 pg (26-32); Mean Platelet Volume 9.1 fl (6-9.5); Monocyte (Absolute #) 0.67 (0.0-1.3); Monocytes % 5.2 % (0.0-12.0); Platelet Count 212 K/mm3 (150-450); Red Blood Count 5.21 M/mm3 (4.1-5.6); White Blood Count 12.8 K/mm3 (4.0-10.5)
[2017-07-01] MEDS ORDERED: NORCO 5/325 MG PO ONE (04:05)
[2017-07-01] MEDS ORDERED: NORCO 5/325 MG ONE (04:27)
[2017-07-01 06:30] VITALS: BP 138/79; PULSE 58; O2SAT 93
--- NOTE | 2017-07-01 08:54 | XRAY ---
Indication: Pain following fall. Comparison: December 23, 2014. 3 views of the left shoulder again demonstrate osteopenia, moderate AC degenerative arthropathy, and left hilar calcified nodes. No new/acute findings.
--- NOTE | 2017-07-01 08:56 | XRAY ---
Indication: Pain following fall. Comparison: December 23, 2014. 2 views of the left humerus again demonstrates osteopenia and moderate AC degenerative arthropathy. No new/acute findings.
--- NOTE | 2017-07-01 08:56 | XRAY ---
Indication: Pain following fall. Comparison: None 3 views of the left wrist demonstrates osteopenia, mild 1st metacarpal multangular degenerative changes, and old 1st proximal phalanx fracture. No other bony, articular, or soft tissue abnormalities.
== END 2017-07-01 06:32 | disposition home or self-care (01) ==
LOC: ED 02:28
DX: M25.532 Pain in left wrist (principal); M25.512 Pain in left shoulder; W19.XXXA Unspecified fall, initial encounter; Z79.899 Other long term (current) drug therapy; W18.30XA Fall on same level, unspecified, initial encounter; Y92.129 Unspecified place in nursing home as the place of occurrence of the external cause
CPT/HCPCS: 36000; 36415; 73030; 73060; 73110; 84484; 85025; 93005; 96374; 96375; 99283; 99284; J2270; J2405; L3908; A9270-GY

== ENCOUNTER 2017-09-14 06:26 | Emergency (ER) | payer MEDICARE ==
--- NOTE | 2017-09-14 06:50 | ERPHSYRPT ---
- History of Present Illness Source: patient, EMS Patient Subjective Stated Complaint: LOST BALANCE GETTING UP TO GO TO BATHROOM.. DID NOT USE WALKER.. DENIES LOC. HIT LEFT FOREHEAD. PAIN IN LEFT WRIST AND LEFT ARM AFTER LANDING ON LEFT SIDE. NO HIP/LEG PAIN.. LAID ON FLOOR FOR APPROX 2 HOURS. WAS ABLE TO MOVE AROUND ON FLOOR BUT COULD NOT GET ON FEET WITHOUT ASSISTANCE. ABLE TO WALK WHEN HELPED TO A STANDING POSITION. Triage Nursing Assessment: ALERT AND ORIENTED. FELL THIS am AT APPROX 0330. STATES LOST BALANCE. HAS A HX OF FALLING.. SUPPOSE TO USE WALKER OR W/C WHEN UP BUT DID NOT THIS MORNING. HIR LEFT SIDE OF HEAD AND LEFT ARM/SHOULDER/UPPER , ELBOW AND ARM AND WRIST. PAIN ON PALPATION TO LEFT WRIST. NO OBVIOUS DEFORMITY BUT PAIN ON MOVEMENT.. SPLINT INPLACE FROM EMS. + RADIAL PULSE PRESENT. PADRON. Occurred: just prior to arrival Reason for Fall: slipped, tripped Injuries/Pain Location: upper extremity (left) Loss of Consciousness: no loss of consciousness Severity of Pain-Max: mild Severity of Pain-Current: mild Associated Symptoms (Fall): denies symptoms Hx Tetanus, Diphtheria Vaccination/Date Given: Yes Hx Influenza Vaccination/Date Given: Yes Hx Pneumococcal Vaccination/Date Given: Yes Immunizations Up to Date: (UNKNOWN) <EDIE PEÑA - Last Filed: 09/14/17 06:47> <ANNA MARIE MUNIZ - Last Filed: 09/14/17 08:11> - History of Present Illness Time Seen by Provider: 09/14/17 06:47 Physician History: 72-year-old male came to the emergency room after having a fall due to losing balance while going to the bathroom. Patient usually uses a walker, but today he did not use did not fall, hit on his left forehead, left wrist, left arm, forearm and shoulder. Patient did not last any consciousness. No other injury noted. Patient denies any other symptoms. (EDIE PEÑA) Allergies/Adverse Reactions: NSAIDS (Non-Steroidal Anti-Inflamma Allergy (Verified 09/14/17 06:46) Home Medications: Amlodipine Besylate 10 mg [Norvasc 10 MG] 10 mg PO DAILY 10/14/15 [History] Cholecalciferol (Vitamin D3) [Vitamin D] 1,000 unit PO DAILY 10/14/15 [ History] Clonidine HCl 0.2 mg PO BID 10/14/15 [History] Clopidogrel Bisulfate 75 mg [PLAVIX 75 MG Tablet] 75 mg PO DAILY 10/14/15 [History] Ezetimibe 10 mg [Zetia 10 MG] 10 mg PO DAILY 10/14/15 [History] Fluoxetine HCl 10 mg [Prozac 10 mg] 10 mg PO DAILY 10/14/15 [History] Losartan Potassium 50 mg [Cozaar 50 MG] 50 mg PO DAILY 10/14/15 [History] Omeprazole 20 MG [Prilosec 20 mg] 20 mg PO DAILY 10/14/15 [History] Aspirin EC 325 mg [Ecotrin 325 MG] 325 mg PO DAILY 07/25/16 [History] Medroxyprogesterone Acetate [Depo-Provera] 150 mg IM UD 07/25/16 [History] - Review of Systems Constitutional: No Fever, No Chills Eyes: No Symptoms Ears, Nose, & Throat: No Symptoms Respiratory: No Cough, No Dyspnea Cardiac: No Chest Pain, No Edema, No Syncope Abdominal/Gastrointestinal: No Abdominal Pain, No Nausea, No Vomiting, No Diarrhea Genitourinary Symptoms: No Dysuria Musculoskeletal: Fall, No Back Pain, No Neck Pain, No Deformity Skin: No Rash Neurological: No Dizziness, No Focal Weakness, No Sensory Changes Psychological: No Symptoms Endocrine: No Symptoms All Other Systems: Reviewed and Negative <CASEY,EDIE - Last Filed: 09/14/17 06:47> - Past Medical History Pertinent Past Medical History: Yes Neurological History: Stroke ENT History: Other Cardiac History: High Cholesterol, Hypertension, Myocardial Infarction (CT), Other Respiratory History: No Pertinent History Endocrine Medical History: No Pertinent History Musculoskeletal History: Arthritis, Fractures GI Medical History: GERD History: Other Psycho-Social History: No Pertinent History Male Reproductive Disorders: No Pertinent History Other Medical History: CABG 1999, URETER STENT 2001, BRAIN STEM CVA, HERNIA REPAIR x 2, BLIND IN LEFT EYE - Past Surgical History Past Surgical History: Yes Neuro Surgical History: No Pertinent History Cardiac: Angioplasty, CABG, Cardiac Catheterization, Cardiac Stent Respiratory: No Pertinent History Gastrointestinal: Hernia Repair Genitourinary: Other Musculoskeletal: Joint Replacement, Other Male Surgical History: No Pertinent History Other Surgical History: STENT IN KIDNEY, CABG 1999, R Hip replacement, L thumb surgical repair w/ pin, right hip replacement - Social History Smoking Status: Never smoker Exposure to second hand smoke: No Drug Use: none Patient Lives Alone: No <CASEY - Last Filed: 09/14/17 06:47> - Ericka Coma Score Best Eye Response ([place]ka): (4) open spontaneously Best Verbal Response ([place]): (5) oriented Best Motor Response ([place]): (6) obeys commands [place]ka Total: 15 - Physical Exam General Appearance: no apparent distress, alert Head Injury: no evidence of injury Eye Exam: PERRL/EOMI ENT Exam: airway nml Neck Exam: normal inspection, No tenderness Respiratory/Chest Exam: normal breath sounds, No chest tenderness, No respiratory distress Cardiovascular Exam: normal heart sounds, regular rate/rhythm Gastrointestinal Exam: soft, No tenderness, No distention, No guarding, No ecchymosis Back Exam: normal inspection, No vertebral tenderness Extremity Exam: normal inspection, pelvis stable, limited range of motion, No deformities, No pulse deficit Neurologic Exam: alert, oriented x 3, cooperative, sensation nml, No motor deficits Skin Exam: normal color, warm, dry SpO2: 95 Oxygen Delivery: Room Air <CASEY - Last Filed: 09/14/17 06:47> - Nursing Vital Signs Nursing Vital Signs: Initial Vital Signs Temperature 97.2 F 09/14/17 06:31 Pulse Rate 52 L 09/14/17 06:31 Respiratory Rate 18 09/14/17 06:31 Blood Pressure 169/86 09/14/17 06:31 O2 Sat by Pulse Oximetry 95 09/14/17 06:31 Pain Scale Pain Intensity 5 - Course Nursing assessment & vital signs reviewed: Yes - Radiology Exams Left Forearm X-ray Interpretation: Discussed w/ radiologist (x-ray left forearm: non displaced comminuted hairline fractures involving the distal radius and ulna with intraarticular extension and soft tissue swelling, also tiny displaced ulnar styloid fracture. elsewhere osteopenia and mild 1st metacarparpal multangular degenerative changes.) Left Humerus X-ray Interpretation: Discussed w/ radiologist (osteopenia, moderate AC degenerative arthropathy and l hilar calcified lymph nodes. no new / acute findings), Teleradiologist Report (normal left humerus x -rays) Left Shoulder X-ray Interpretation: Discussed w/ radiologist (moderate AC degenerative arthropathy. CABG surgery and calcified left hilar calcified nodes. no new/ acute findings) <ANNA MARIE MUNIZ - Last Filed: 09/14/17 08:11> Ordered Tests: Active Orders 24 hr Category Date Time Status FOREARM Stat Exams 09/14/17 06:30 Completed HUMERUS Stat Exams 09/14/17 06:30 Completed SHOULDER Stat Exams 09/14/17 06:31 Completed WRIST (MIN 3 VIEWS) Stat Exams 09/14/17 06:31 Ordered <EDIE PEÑA - Last Filed: 09/14/17 06:47> - Progress Progress: improved <ANNA MARIE MUNIZ - Last Filed: 09/14/17 08:11> - Progress Progress Note: 09/14/17 07:58 This is a 72-year-old white male initially seen by Dr. Peña with complaint of pain in his left arm left wrist symptoms since this morning at 3:30 AM patient states he fell at home patient states he lost balance while going to the bathroom he usually uses a walker but today did not use it. Past medical history includes CVA, hypertension, hypercholesterolemia, CT, CABG , ureteral stent, brain stem CVA, hernia repair, blind in his left eye Past surgical history includes CABG, cardiac catheter, cardiac stent, hernia repair, joint replacement, right hip replacement left thumb surgical repair with 10, Physical examination well-developed well-nourished white male no acute distress head atraumatic normocephalic Eyes PERRLA EOMI drooping of the left eye chronic nose is clear throat is clear neck is supple no tenderness lungs are clear heart regular rate and rhythm without murmur abdomen soft nontender nondistended positive bowel sounds back nontender extremity pain with palpation distal left forearm decreased range of motion left arm distal left forearm pulses equal and symmetrical 2 over 4 neuro patient alert oriented 3 Frank 2 through 12 are intact. X-rays x-ray left forearm remarkable for a nondisplaced comminuted hairline fracture involving the distal radius and ulna with intra-articular extension and soft tissue swelling. Also tiny displaced ulnar styloid fracture. Also osteopenia and mild first metacarpal multinodular degenerative changes x-ray left shoulder, osteopenia moderate before meals degenerative arthropathy, CABG surgery, and left hilar calcified nodes. No new or acute findings x-ray left humerus, osteopenia, moderate before meals degenerative arthropathy in the left hilar calcified nodes no new or acute findings Impression accidental fall. , Nondisplaced comminuted hairline fractures involving the distal radius and ulna with interarticular extension and soft tissue swelling and tiny displaced ulnar styloid fracture Plan patient with short arm OCL placed. Patient really not in acute distress Will consider [place] for pain patient will need to follow-up with [facility] orthopedic clinic or Dr. Nolen. (ANNA MARIE MUNIZ) <EDIE PEÑA - Last Filed: 09/14/17 06:47> - Departure Time of Disposition: 08:04 Departure Disposition: Home Critical Care Time: No <ANNA MARIE MUNIZ - Last Filed: 09/14/17 08:11> - Departure Clinical Impression: Fracture of left distal radius Qualifiers: Encounter type: initial encounter Fracture type: closed Fracture morphology: unspecified fracture morphology Qualified Code(s): S52.502A - Unspecified fracture of the lower end of left radius, initial encounter for closed fracture Fracture of distal end of left ulna Qualifiers: Encounter type: initial encounter Fracture type: closed Fracture morphology: unspecified fracture morphology Qualified Code(s): S52.602A - Unspecified fracture of lower end of left ulna, initial encounter for closed fracture Condition: Fair Referrals: INÉS MCINTYRE MD [Primary Care Provider] - LUIS FELIPE NOLEN [ACTIVE STAFF] - Additional Instructions: Return home. Ice and elevate left wrist 24-48 hours. [place] as prescribed for pain. Follow-up with [facility] orthopedic clinic Saturday morning at [address] Nolen ( call for appointment), or your family doctor. (Call for appointment) Return for acute distress or for severe symptoms. Prescriptions: Hydrocodone/Acetaminophen [[place] 5-325 Tablet] 1 tab PO Q4-6HPRN PRN #12 tablet MDD 6 tablets PRN Reason: Pain
--- NOTE | 2017-09-14 07:35 | XRAY ---
Indication: Pain following fall. Comparison: July 01, 2017. 3 views of the left shoulder again demonstrates osteopenia, moderate AC degenerative arthropathy, CABG surgery, and left hilar calcified nodes. No new/acute findings.
--- NOTE | 2017-09-14 07:37 | XRAY ---
Indication: Pain following fall. Comparison: July 01, 2017. 2 views of the left humerus again demonstrates osteopenia, moderate AC degenerative arthropathy, and left hilar calcified nodes. No new/acute findings.
--- NOTE | 2017-09-14 07:39 | XRAY ---
Indication: Pain following fall. Comparison: None 2 views of the left forearm demonstrates nondisplaced comminuted hairline fractures involving the distal radius and ulna with intra-articular extension and soft tissue swelling. Also tiny displaced ulnar styloid fracture. Elsewhere osteopenia and mild 1st metacarpal multangular degenerative changes.
[2017-09-14] MEDS ORDERED: NORCO 5/325 MG PO ONE (08:11)
[2017-09-14] MEDS ORDERED: NORCO 5/325 MG ONE (08:14)
[2017-09-14 09:44] VITALS: BP 162/90; PULSE 60; O2SAT 98
== END 2017-09-14 09:44 | disposition home or self-care (01) ==
LOC: ED 06:26
DX: S52.502A Unspecified fracture of the lower end of left radius, initial encounter for closed fracture (principal); S52.602A Unspecified fracture of lower end of left ulna, initial encounter for closed fracture; S00.83XA Contusion of other part of head, initial encounter; S40.012A Contusion of left shoulder, initial encounter; M25.532 Pain in left wrist; W18.30XA Fall on same level, unspecified, initial encounter; Y93.89 Activity, other specified; Y92.002 Bathroom of unspecified non-institutional (private) residence as the place of occurrence of the external cause; Z79.01 Long term (current) use of anticoagulants; Z79.899 Other long term (current) drug therapy
CPT/HCPCS: 29126; 73030; 73060; 73090; 99284; A9270-GY

== ENCOUNTER 2017-09-17 14:58 | Emergency (ER) | payer MEDICARE ==
--- NOTE | 2017-09-17 15:20 | ERPHSYRPT ---
- History of Present Illness Time Seen by Provider: 09/17/17 15:15 Source: patient Exam Limitations: no limitations Patient Subjective Stated Complaint: pt reports falling [employer] while stepping out of the shower. reports the floor was wet causing him to slip, striking the right side of his face on the toilet. pt denies LOC. pt reports falling over the weekend and fractuting his right wrist. pt also reports pain to the left hip. Triage Nursing Assessment: pt is aox3, pupils perrl, resps easy and non labored , pt is afebrile, radial pulses are strong and equal. splint noted to the right lower arm. cap refill < 3 seconds. pt sensation intact. pt skin is pink warm and dry. no obvious injury noted. no bruising noted. Physician History: Patient is a 72-year-old male resident of [facility] brought in by ambulance complaining of falling while stepping out of the shower onto a wet floor. The left side of his face struck the stool. He complains of left face pain, neck pain, and left hip pain. He did not lose consciousness. He is blind in his left eye. He has a splint on his left lower arm from a previous fall. Past medical history of BPH, HTN, stoke. Occurred: just prior to arrival Reason for Fall: slipped, fell from standing pos Injuries/Pain Location: face, neck, lower extremity (left hip) Loss of Consciousness: no loss of consciousness Quality: aching, sharpness Severity of Pain-Max: moderate Severity of Pain-Current: moderate Modifying Factors: Improves With: nothing Associated Symptoms (Fall): denies symptoms Allergies/Adverse Reactions: NSAIDS (Non-Steroidal Anti-Inflamma Allergy (Verified 09/14/17 06:46) Home Medications: Amlodipine Besylate 10 mg [Norvasc 10 MG] 10 mg PO DAILY 10/14/15 [History] Cholecalciferol (Vitamin D3) [Vitamin D] 1,000 unit PO DAILY 10/14/15 [ History] Clonidine HCl 0.2 mg PO BID 10/14/15 [History] Clopidogrel Bisulfate 75 mg [PLAVIX 75 MG Tablet] 75 mg PO DAILY 10/14/15 [History] Ezetimibe 10 mg [Zetia 10 MG] 10 mg PO DAILY 10/14/15 [History] Fluoxetine HCl 10 mg [Prozac 10 mg] 10 mg PO DAILY 10/14/15 [History] Losartan Potassium 50 mg [Cozaar 50 MG] 50 mg PO DAILY 10/14/15 [History] Omeprazole 20 MG [Prilosec 20 mg] 20 mg PO DAILY 10/14/15 [History] Aspirin EC 325 mg [Ecotrin 325 MG] 325 mg PO DAILY 07/25/16 [History] Medroxyprogesterone Acetate [Depo-Provera] 150 mg IM UD 07/25/16 [History] Hx Tetanus, Diphtheria Vaccination/Date Given: Yes Hx Influenza Vaccination/Date Given: Yes Hx Pneumococcal Vaccination/Date Given: No Immunizations Up to Date: Yes - Review of Systems Constitutional: No Fever, No Chills Eyes: No Symptoms Ears, Nose, & Throat: No Symptoms Respiratory: No Cough, No Dyspnea Cardiac: No Chest Pain, No Edema, No Syncope Abdominal/Gastrointestinal: No Abdominal Pain, No Nausea, No Vomiting, No Diarrhea Genitourinary Symptoms: No Dysuria Musculoskeletal: Fall, Injury Skin: No Rash Neurological: No Dizziness, No Focal Weakness, No Sensory Changes Psychological: No Symptoms Endocrine: No Symptoms Hematologic/Lymphatic: No Symptoms Immunological/Allergic: No Symptoms All Other Systems: Reviewed and Negative - Past Medical History Pertinent Past Medical History: Yes Neurological History: Stroke ENT History: Other Cardiac History: High Cholesterol, Hypertension, Myocardial Infarction ([place]), Other Respiratory History: No Pertinent History Endocrine Medical History: No Pertinent History Musculoskeletal History: Arthritis, Fractures GI Medical History: GERD History: Other Psycho-Social History: No Pertinent History Male Reproductive Disorders: No Pertinent History Other Medical History: CABG 1999, URETER STENT 2001, BRAIN STEM CVA, HERNIA REPAIR x 2, BLIND IN LEFT EYE - Past Surgical History Past Surgical History: Yes Neuro Surgical History: No Pertinent History Cardiac: Angioplasty, CABG, Cardiac Catheterization, Cardiac Stent Respiratory: No Pertinent History Gastrointestinal: Hernia Repair Genitourinary: Other Musculoskeletal: Joint Replacement, Other Male Surgical History: No Pertinent History Other Surgical History: STENT IN KIDNEY, CABG 1999, R Hip replacement, L thumb surgical repair w/ pin, right hip replacement - Social History Smoking Status: Never smoker Exposure to second hand smoke: No Drug Use: none Patient Lives Alone: No - Nursing Vital Signs Nursing Vital Signs: Initial Vital Signs Temperature 98.8 F 09/17/17 15:00 Pulse Rate 70 09/17/17 15:00 Respiratory Rate 20 09/17/17 15:00 Blood Pressure 134/69 09/17/17 15:00 O2 Sat by Pulse Oximetry 93 L 09/17/17 15:00 Pain Scale Pain Intensity 8 - Ericka Coma Score Best Eye Response ([place]): (4) open spontaneously Best Verbal Response ([place]): (5) oriented Best Motor Response ([place]): (6) obeys commands [place] Total: 15 - Physical Exam General Appearance: mild distress Head Injury: tenderness (left cheek) Eye Exam: PERRL/EOMI, other (left eye blindness) ENT Exam: airway nml, nml ext.inspection Neck Exam: normal inspection, tenderness (posterior musculature) Respiratory/Chest Exam: normal breath sounds, No chest tenderness, No respiratory distress Cardiovascular Exam: normal heart sounds, regular rate/rhythm Gastrointestinal Exam: soft, No tenderness, No distention, No guarding, No ecchymosis Rectal Exam: not done Back Exam: normal inspection, No vertebral tenderness Extremity Exam: normal range of motion, pelvis stable, hip tenderness (left hip) , pain with movement, No deformities Neurologic Exam: alert, oriented x 3, cooperative, sensation nml, No motor deficits Skin Exam: normal color, warm, dry SpO2 Interpretation: normal SpO2: 93 Oxygen Delivery: Nasal Cannula - Radiology Exams Left Hip X-ray Interpretation: Reviewed by me, Teleradiologist Report, Displaced Fracture (left femoral neck fracture per Dr aCrreno) - CT Exams Head CT Interpretation: Negative (stable nonacute senile brain per Dr Carreno), Tele- radiologist Report Cervical Spine CT Interpretation: Negative (per DR Carreno.), Tele-radiologist Report Maxillofacial Bones CT Interpretation: Negative (per Dr Carreno), Tele-radiologist Report Ordered Tests: Active Orders 24 hr Category Date Time Status CERVICAL SPINE WO CONTRAST [CT] Stat Exams 09/17/17 15:14 Completed FACIAL BONES WO CONTRAST [CT] Stat Exams 09/17/17 15:14 Completed HEAD WITHOUT CONTRAST [CT] Stat Exams 09/17/17 15:14 Completed HIP UNI (2V) INCL PEL IF DONE Stat Exams 09/17/17 15:13 Completed - Progress Progress: improved Counseled pt/family regarding: diagnosis, need for follow-up, rad results - Departure Time of Disposition: 16:45 Departure Disposition: Transfer (Transfer to [facility] per DR Gee.) Clinical Impression: Fracture of left hip Condition: Stable Critical Care Time: No Referrals: INÉS MCINTYRE MD [Primary Care Provider] -
--- NOTE | 2017-09-17 16:29 | XRAY ---
Indication: Left facial injury following fall. Multiple contiguous axial images obtained through the facial bones. Sagittal and coronal reformatted images obtained. Comparison: November 06, 2015. Again no acute fracture, suspicious bony lesions, or radiopaque foreign body. Orbits including, bonilla, and floors are intact. Minimal mucosal thickening of both maxillary and both ethmoid sinuses without fluid leveling. Remaining paranasal sinuses and nasal passages are clear. Stable mild nasal septal deviation to the left. Visualized noncontrasted soft tissues unremarkable. CT head and CT cervical spine reported separately. Impression: 1. CT facial bone exam again negative for acute fracture. 2. Minimal paranasal sinus disease. CTDI 59.47
--- NOTE | 2017-09-17 16:30 | XRAY ---
Indication: Left-sided head injury following fall. Multiple contiguous axial images obtained through the head without contrast. Comparison: July 25, 2016. Stable age-appropriate global atrophy, mild periventricular degenerative microvascular ischemia, remote left caudate lacunar infarct, and remote right cerebellar infarct. No acute intracranial hemorrhage, abnormal extra-axial fluid collection, or mass effect. Fourth ventricle is midline. Bony calvarium intact. Visualized paranasal sinuses and mastoid air cells are clear. Impression: Stable nonacute senile brain with old infarcts as detailed. CTDI 50.75
--- NOTE | 2017-09-17 16:35 | XRAY ---
Indication: Neck pain following fall. Multiple contiguous axial images obtained through the cervical spine. Sagittal and coronal reformatted images obtained. Comparison: November 06, 2015. Axial images again negative for acute fracture, suspicious bone lesions, or spinal canal stenosis. There remains moderate C3-C7 degenerative endplate spurring and minimal multilevel degenerative facet arthropathy. Sagittal and coronal reformatted images again demonstrates cervical lordotic reversal, positional versus paraspinal spasm. Stable minimal C3-C7 degenerative disc space narrowing. No acute compression fracture, subluxation, or jumped facet. Normal appearing craniocervical junction. Visualized noncontrasted soft tissues again demonstrates mild carotid calcifications bilaterally. CT head and CT facial bones reported separately. Impression: 1. Again negative acute fracture/subluxation. 2. Stable multilevel degenerative changes and cervical lordotic reversal. CTDI 53.92
--- NOTE | 2017-09-17 16:37 | XRAY ---
Indication: Pain following fall. Comparison: January 16, 2014. 2 views of the left hip demonstrates new impacted femur neck fracture with mild angulation. Hip articulation intact with stable mild degenerative changes. Minimal femoral vascular calcifications. No other bony, articular, or soft tissue abnormalities.
[2017-09-17 17:06] VITALS: BP 167/74; PULSE 74; O2SAT 95
[2017-09-17] MEDS ORDERED: Zofran 4 MG/2 ML VIAL ONE (17:09)
[2017-09-17] MEDS ORDERED: MORPHINE SULFATE 4 MG INJ ONE (17:09)
[2017-09-17] MEDS: MORPHINE SULFATE 2 MG INJ IV ONE (17:38)
[2017-09-17] MEDS: Zofran 4 MG/2 ML VIAL IV ONE (17:38)
== END 2017-09-17 17:55 | disposition short-term general hospital (02) ==
LOC: ED 14:58
DX: S72.002A Fracture of unspecified part of neck of left femur, initial encounter for closed fracture (principal); S09.93XA Unspecified injury of face, initial encounter; R51 Headache; M54.2 Cervicalgia; W18.2XXA Fall in (into) shower or empty bathtub, initial encounter; Y93.E1 Activity, personal bathing and showering; Y92.121 Bathroom in nursing home as the place of occurrence of the external cause; Z79.01 Long term (current) use of anticoagulants; Z79.899 Other long term (current) drug therapy
CPT/HCPCS: 36000; 70450; 70486; 72125; 73502; 96374; 96375; 99284; 99285; J2270; J2405

== ENCOUNTER 2017-11-30 21:47 | Emergency (ER) | payer MEDICARE ==
--- NOTE | 2017-11-30 22:26 | ERPHSYRPT ---
- History of Present Illness Time Seen by Provider: 11/30/17 22:19 Source: patient Exam Limitations: no limitations Physician History: This 72-year-old white male sent from the jail with complaints of lower abdominal pain, also patient apparently is not getting any urine out of his Davis at the jail and jail states that they do not have material to replace it. Patient has not been vomiting no fevers he has had diarrhea. Past medical history includes CVA, hyperlipidemia, high blood pressure, [place], arthritis, fractures, GERD, CABG, cardiac catheter, cardiac stents, hernia repair Past surgical history includes cardiac stent, cardiac catheter, hernia repair, joint replacement, CABG, right hip replacement, left thumb ORIF, right hip arthroplasty Timing/Duration: today Severity: moderate Modifying Factors: Improves With: nothing Associated Symptoms: No nausea, No vomiting, No abdominal pain, No shortness of breath, No heartburn, No diaphoresis, No cough, No chills, No chest pain, No fever, No headaches, No loss of appetite, No malaise, No rash, No syncope, No seizure, No weakness Allergies/Adverse Reactions: NSAIDS (Non-Steroidal Anti-Inflamma Allergy (Verified 09/14/17 06:46) Home Medications: Amlodipine Besylate 10 mg [Norvasc 10 MG] 10 mg PO DAILY 10/14/15 [History] Cholecalciferol (Vitamin D3) [Vitamin D] 1,000 unit PO DAILY 10/14/15 [ History] Clonidine HCl 0.2 mg PO BID 10/14/15 [History] Ezetimibe 10 mg [Zetia 10 MG] 10 mg PO DAILY 10/14/15 [History] Fluoxetine HCl 10 mg [Prozac 10 mg] 10 mg PO DAILY 10/14/15 [History] Losartan Potassium 50 mg [Cozaar 50 MG] 50 mg PO DAILY 10/14/15 [History] Omeprazole 20 MG [Prilosec 20 mg] 20 mg PO DAILY 10/14/15 [History] Aspirin EC 325 mg [Ecotrin 325 MG] 325 mg PO DAILY 07/25/16 [History] Medroxyprogesterone Acetate [Depo-Provera] 150 mg IM UD 07/25/16 [History] Hx Tetanus, Diphtheria Vaccination/Date Given: Yes Hx Influenza Vaccination/Date Given: Yes Hx Pneumococcal Vaccination/Date Given: No - Review of Systems Constitutional: No Fever, No Chills Eyes: No Symptoms Ears, Nose, & Throat: No Symptoms Respiratory: No Cough, No Dyspnea Cardiac: No Chest Pain, No Edema, No Syncope Abdominal/Gastrointestinal: Abdominal Pain, Diarrhea, No Nausea, No Vomiting, No Constipation, No Hematemesis, No Hematochezia, No Melena Genitourinary Symptoms: Other (decreased urine output) Musculoskeletal: No Back Pain, No Neck Pain Skin: No Rash Neurological: No Dizziness, No Focal Weakness, No Sensory Changes Psychological: No Symptoms Endocrine: No Symptoms All Other Systems: Reviewed and Negative - Past Medical History Pertinent Past Medical History: Yes Neurological History: Stroke ENT History: Other Cardiac History: High Cholesterol, Hypertension, Myocardial Infarction ([place]), Other Respiratory History: No Pertinent History Endocrine Medical History: No Pertinent History Musculoskeletal History: Arthritis, Fractures GI Medical History: GERD History: Other Psycho-Social History: No Pertinent History Male Reproductive Disorders: No Pertinent History Other Medical History: CABG 1999, URETER STENT 2001, BRAIN STEM CVA, HERNIA REPAIR x 2, BLIND IN LEFT EYE - Past Surgical History Past Surgical History: Yes Neuro Surgical History: No Pertinent History Cardiac: Angioplasty, CABG, Cardiac Catheterization, Cardiac Stent Respiratory: No Pertinent History Gastrointestinal: Hernia Repair Genitourinary: Other Musculoskeletal: Joint Replacement, Other Male Surgical History: No Pertinent History Other Surgical History: STENT IN KIDNEY, CABG 1999, R Hip replacement, L thumb surgical repair w/ pin, right hip replacement - Social History Smoking Status: Never smoker Exposure to second hand smoke: No Drug Use: none Patient Lives Alone: No - Nursing Vital Signs Nursing Vital Signs: Initial Vital Signs Pulse Rate 71 11/30/17 21:48 Respiratory Rate 16 11/30/17 21:48 Blood Pressure 134/82 11/30/17 21:48 O2 Sat by Pulse Oximetry 99 11/30/17 21:48 Pain Scale Pain Intensity 2 - Physical Exam General Appearance: no apparent distress, alert Eye Exam: PERRL/EOMI, eyes nml inspection Ears, Nose, Throat Exam: normal ENT inspection, TMs normal, pharynx normal, moist mucous membranes Neck Exam: normal inspection, non-tender, supple, full range of motion Respiratory Exam: normal breath sounds, lungs clear, No respiratory distress Cardiovascular Exam: regular rate/rhythm, normal heart sounds, normal peripheral pulses Gastrointestinal/Abdomen Exam: soft, normal bowel sounds, tenderness (Mild suprapubic tenderness) Back Exam: normal inspection, normal range of motion, No CVA tenderness, No vertebral tenderness Extremity Exam: normal inspection, normal range of motion, pelvis stable Neurologic Exam: alert, oriented x 3, cooperative, pin worker II-XII nml as tested, normal mood/affect, nml cerebellar function, nml station & gait, sensation nml, No motor deficits Skin Exam: normal color, warm, dry, No rash Lymphatic Exam: No adenopathy SpO2 Interpretation: normal - Course Nursing assessment & vital signs reviewed: Yes EKG Interpreted by Me: RATE (55 bpm), Sinus Asher, NORMAL AXIS, Right Bundle Branch Block, Other (EKG: Sinus bradycardia, 55 bpm, normal axis, complete right bundle branch block, no acute ST or T wave changes, compared to July 25, 2016) - CT Exams Abdomen/Pelvis CT Interpretation: Tele-radiologist Report (CT abdomen and pelvis impression there is a Davis catheter with the bulb deployed in the urethra at the level of the base of the penis. There is adjacent loculated debris.the urinary bladder is distended with fluid and gas. Urology consult recommended) Ordered Tests: Active Orders 24 hr Category Date Time Status Catheter-[place] Davis STAT Care 11/30/17 22:19 Active EKG-ER Only STAT Care 12/01/17 00:19 Active IV Insertion STAT Care 11/30/17 22:19 Active ABDOMEN AND PELVIS W/0 CONTRAS [CT] Stat Exams 11/30/17 23:12 Taken CHEST 1 VIEW (PORTABLE) Stat Exams 11/30/17 23:12 Taken AMYLASE Stat Lab 11/30/17 23:04 Completed BLOOD CULTURE Stat Lab 11/30/17 23:15 Received CBC W DIFF Stat Lab 11/30/17 23:04 Completed CMP Stat Lab 11/30/17 23:04 Completed CULTURE,URINE Stat Lab 11/30/17 23:04 Received LIPASE Stat Lab 11/30/17 23:04 Completed Lactic Acid Stat Lab 11/30/17 23:11 Completed Lactic Acid Stat Lab 12/01/17 01:29 Ordered Manual Differential NC Stat Lab 11/30/17 23:04 Completed PROTIME WITH INR Stat Lab 11/30/17 23:15 Completed PTT Stat Lab 11/30/17 23:15 Completed UA W/ MICROSCOPIC Stat Lab 11/30/17 23:04 Completed Medication Summary Generic Name Dose Route Start Last Admin Trade Name Maxime PRN Reason Stop Dose Admin Sodium Chloride 1,000 mls @ 100 mls/hr 11/30/17 22:30 11/30/17 23:26 Sodium Chloride 0.9% 1000 Ml IV 12/30/17 22:29 999 mls/hr .Q10H KRYSTIAN Infusion Discontinued Medications Generic Name Dose Route Start Last Admin Trade Name Maxime PRN Reason Stop Dose Admin Ceftriaxone Sodium/Dextrose 1 g in 50 mls @ 100 mls/hr 11/30/17 23:16 23:24 Rocephin 1 Gm-D5w 50 Ml Bag IV 11/30/17 23:45 1 mls/hr STAT STA 1 mls/hr Administration Sodium Chloride 1,000 mls @ 999 mls/hr 11/30/17 23:19 12/01/17 01:30 Sodium Chloride 0.9% 1000 Ml IV 12/01/17 00:19 999 mls/hr .Q1H1M STA Administration Ceftriaxone Sodium/Dextrose Confirm 11/30/17 23:21 Rocephin 1 Gm-D5w 50 Ml Bag Administered 11/30/17 23:22 Dose 1 g in 50 mls @ ud IV .STK-MED ONE Sodium Chloride 1,000 mls @ 999 mls/hr 11/30/17 23:37 12/01/17 01:50 Sodium Chloride 0.9% 1000 Ml IV 12/01/17 00:37 Not Given .Q1H1M STA Lab/Rad Data: Laboratory Result Diagrams 11/30/17 23:04 11/30/17 23:04 Laboratory Results 11/30/17 11/30/17 11/30/17 Range/Units 23:15 23:11 23:04 WBC (4.0-10.5) K/mm3 RBC (4.1-5.6) M/mm3 Hgb (12.5-18.0) gm/dl Hct (42-50) % MCV (78-100) fl MCH (26-32) pg MCHC (32-36) g/dl RDW (11.5-14.0) % Plt Count (150-450) K/mm3 MPV (6-9.5) fl Absolute Granulocytes (1.4-6.9) Segmented Neutrophils (36.-66.) % Band Neutrophils (0.0-2.0) % Lymphocytes (Manual) (24-44) % Monocytes (Manual) (0.0-12.0) % Dohle Bodies Platelet Estimate (NORMAL) RBC Morphology PT 15.2 H (8.83-12.87) SECONDS INR 1.30 (0.8-3.0) APTT 30.4 (24.1-36.1) SECONDS Sodium (137-145) mmol/L Potassium (3.5-5.1) mmol/L Chloride (98-107) mmol/L Carbon Dioxide (22-30) mmol/L Anion Gap (5-15) MEQ/L BUN (9-20) mg/dL Creatinine (0.66-1.25) mg/dL Estimated GFR ML/MIN Glucose (74-106) mg/dL Lactic Acid 4.7 H (0.4-2.0) Calcium (8.4-10.2) mg/dL Total Bilirubin (0.2-1.3) mg/dL AST (17-59) U/L ALT (0-50) U/L Alkaline Phosphatase (38-126) U/L Serum Total Protein (6.3-8.2) g/dL Albumin (3.5-5.0) g/dL Amylase (30-110) U/L Lipase (23-300) U/L Ur Collection Type INDWELLING CATH Urine Color RED (YELLOW) Urine Appearance VERY CLOUDY (CLEAR) Urine pH 5.0 (5-6) Ur Specific [place] 1.020 (1.005-1.025) Urine Protein 100 (Negative) Urine Ketones SMALL (NEGATIVE) Urine Blood 250 (0-5) [place]/ul Urine Nitrite POSITIVE (NEGATIVE) Urine Bilirubin NEGATIVE (NEGATIVE) Urine Urobilinogen NORMAL (0-1) mg/dL Ur Leukocyte Esterase 2+ (NEGATIVE) Urine Microscopic RBC >100 (0-2) /HPF Urine Microscopic WBC >100 (0-5) /HPF Ur Epithelial Cells FEW (FEW) /HPF Urine Bacteria PACKED (NEGATIVE) /HPF Urine Mucus MODERATE (NEGATIVE) /HPF Urine Culture Reflexed YES (NO) Urine Glucose NEGATIVE (NEGATIVE) mg/dL Specimen Received 11/30/17 2300 11/30/17 11/30/17 Range/Units 23:04 23:04 WBC 26.9 H* (4.0-10.5) K/mm3 RBC 3.72 L (4.1-5.6) M/mm3 Hgb 10.2 L (12.5-18.0) gm/dl Hct 30.8 L (42-50) % MCV 82.8 (78-100) fl MCH 27.4 (26-32) pg MCHC 33.1 (32-36) g/dl RDW 16.0 H (11.5-14.0) % Plt Count 256 (150-450) K/mm3 MPV 9.2 (6-9.5) fl Absolute Granulocytes 24.46 H (1.4-6.9) Segmented Neutrophils 83 H (36.-66.) % Band Neutrophils 10 H (0.0-2.0) % Lymphocytes (Manual) 4 L (24-44) % Monocytes (Manual) 3 (0.0-12.0) % Dohle Bodies 2+ Platelet Estimate NORMAL (NORMAL) RBC Morphology NORMAL PT (8.83-12.87) SECONDS INR (0.8-3.0) APTT (24.1-36.1) SECONDS Sodium 145 (137-145) mmol/L Potassium 3.8 (3.5-5.1) mmol/L Chloride 107 (98-107) mmol/L Carbon Dioxide 20 L (22-30) mmol/L Anion Gap 21.8 H (5-15) MEQ/L BUN 34 H (9-20) mg/dL Creatinine 1.68 H (0.66-1.25) mg/dL Estimated GFR 43.0 ML/MIN Glucose 153 H (74-106) mg/dL Lactic Acid (0.4-2.0) Calcium 9.6 (8.4-10.2) mg/dL Total Bilirubin 0.50 (0.2-1.3) mg/dL AST 31 (17-59) U/L ALT 44 (0-50) U/L Alkaline Phosphatase 135 H (38-126) U/L Serum Total Protein 7.4 (6.3-8.2) g/dL Albumin 4.0 (3.5-5.0) g/dL Amylase 52 (30-110) U/L Lipase 15 L (23-300) U/L Ur Collection Type Urine Color (YELLOW) Urine Appearance (CLEAR) Urine pH (5-6) Ur Specific [place] (1.005-1.025) Urine Protein (Negative) Urine Ketones (NEGATIVE) Urine Blood (0-5) [place]/ul Urine Nitrite (NEGATIVE) Urine Bilirubin (NEGATIVE) Urine Urobilinogen (0-1) mg/dL Ur Leukocyte Esterase (NEGATIVE) Urine Microscopic RBC (0-2) /HPF Urine Microscopic WBC (0-5) /HPF Ur Epithelial Cells (FEW) /HPF Urine Bacteria (NEGATIVE) /HPF Urine Mucus (NEGATIVE) /HPF Urine Culture Reflexed (NO) Urine Glucose (NEGATIVE) mg/dL Specimen Received - Progress Progress: improved Progress Note: 11/30/17 22:23 72-year-old white male brought by ambulance from the jail with complaint of decreased urine output, lower abdominal pain and diarrhea Patient apparently was getting decreased urine output the jail states that they were unable to place a Davis due to no materials. On arrival patient was suprapubic discomfort Davis has been placed by the nurse ( Melissa [email or web address] ) Patient's nurse relates that patient is having some urine flowing around the Davis he does have some red urine with a small amount going into the Davis bag. Will go ahead and obtain CBC CMP UA begin normal saline 100 mL per hour. 11/30/17 23:17 I was notified by laboratory the patient's white count is 27,000 Lactate was ordered I've asked the nurses to change IV normal saline to run in 1 L Will order additional, CT abdomen has been ordered. IV Rocephin 1 g has been ordered. 11/30/17 23:38 A total of 3 L normal saline have been ordered the initial 2700 to be running in as a bolus to comply with hydration per sepsis protocol. Patient does have a good perfusion to all extremities. Patient is afebrile blood pressure blood pressure 96/59.. pulse ox 98% 12/01/17 00:44 The nurses attempted to place a Davis catheter into the patient's bladder. And initially were unsuccessful. I talked with Dr. Stark for transfer for diagnosis of sepsis and urinary obstruction. I had planned on returning via IV fluids TKO. However after discussing the matter with Dr. Robles the nurses did manage to get Davis into the patient's bladder. With a large amount of output. Patient has already received Rocephin 1 g IV we'll continue the fluids, Plan to send to [facility] [place], Diagnosis urinary obstruction, sepsis, urinary tract infection, - Departure Time of Disposition: 01:57 Departure Disposition: Transfer ([facility] ER) Clinical Impression: Urinary obstruction Sepsis Qualifiers: Sepsis type: sepsis due to unspecified organism Qualified Code(s): A41.9 - Sepsis, unspecified organism UTI (urinary tract infection) Qualifiers: Urinary tract infection type: site unspecified Hematuria presence: with hematuria Qualified Code(s): N39.0 - Urinary tract infection, site not specified Condition: Fair Critical Care Time: No Critical Care Time(excluding separately billable procedures): 30-74 minutes Referrals: INÉS MCINTYRE MD [Primary Care Provider] -
[2017-11-30] MEDS ORDERED: Sodium Chloride 0.9% 1000 ML 1,000 ML ONE (22:29)
[2017-11-30] MEDS ORDERED: Sodium Chloride 0.9% 1000 ML 1,000 ML IV SCH (22:30)
[2017-11-30 23:06] LABS: Granulocyte Absolute (ANC) 24.46 (1.4-6.9); Hematocrit 30.8 % (42-50); Hemoglobin 10.2 gm/dl (12.5-18.0); Mean Cell Volume 82.8 fl (78-100); Mean Corpuscular Hemoglobin 27.4 pg (26-32); Mean Corpuscular Hgb Concent. 33.1 g/dl (32-36); Mean Platelet Volume 9.2 fl (6-9.5); Platelet Count 256 K/mm3 (150-450); Red Blood Count 3.72 M/mm3 (4.1-5.6)
[2017-11-30 23:09] LABS: White Blood Count 26.9 K/mm3 (4.0-10.5)
[2017-11-30] MEDS ORDERED: ROCEPHIN 1 Gm-D5w 50 ml Bag** 1 G/50 ML IVPB IV STA (23:16)
[2017-11-30] MEDS ORDERED: Sodium Chloride 0.9% 1000 ML 1,000 ML IV STA ×2 (23:19→23:37)
[2017-11-30] MEDS ORDERED: ROCEPHIN 1 Gm-D5w 50 ml Bag** 1 G/50 ML IVPB IV ONE (23:21)
[2017-11-30 23:22] LABS: ANION GAP 21.8 MEQ/L (5-15); BILIRUBIN,TOTAL 0.5 mg/dL (0.2-1.3); Calcium 9.6 mg/dL (8.4-10.2); Creatinine 1 1.68 mg/dL (0.66-1.25); Potassium 3.8 mmol/L (3.5-5.1); Total Protein 7.4 g/dL (6.3-8.2)
[2017-11-30 23:31] LABS: Lactic Acid 4.7 (0.4-2.0)
[2017-11-30 23:34] LABS: Appearance VERY CLOUDY (CLEAR); Bilirubin NEGATIVE (NEGATIVE); Glucose NEGATIVE (NEGATIVE); Ketones SMALL (NEGATIVE); Leukocyte Esterase 2+ (NEGATIVE); Nitrite POSITIVE (NEGATIVE); Protein,Urine Dip 100 (Negative); Urobilinogen NORMAL mg/dL (0-1)
[2017-11-30 23:35] LABS: Bacteria PACKED /HPF (NEGATIVE); Blood 250 Ery/ul (0-5); Epithelial Cells FEW /HPF (FEW); Mucus MODERATE /HPF (NEGATIVE); RBC >100 /HPF (0-2); WBC >100 /HPF (0-5)
[2017-11-30 23:36] LABS: INR 1.3 (0.8-3.0)
[2017-11-30 23:38] LABS: PTT 30.4 SECONDS (24.1-36.1)
[2017-11-30 23:54] LABS: BAND 10 % (0.0-2.0); Lymphocytes 4 % (24-44); Monocyte 3 % (0.0-12.0); Neutrophils 83 % (36.-66.); Total Cells Counted 100
[2017-11-30 23:55] LABS: Dohle Bodies 2+; Platelet Estimate NORMAL (NORMAL)
[2017-12-01] MEDS ORDERED: Sodium Chloride 0.9% 1000 ML 1,000 ML ONE (01:29)
[2017-12-01 01:36] VITALS: BP 103/52; PULSE 74; O2SAT 97
--- NOTE | 2017-12-01 07:14 | XRAY ---
Indication: Left lower quadrant pain. Elevated WBC. Multiple attempts at Davis catheter insertion. Multiple contiguous axial images obtained through the abdomen and pelvis without contrast as ordered. Comparison: July 08, 2012. Lung bases again demonstrates bibasilar dependent atelectasis. New right lower lobe bleb. No infiltrate or effusion. Heart is not enlarged. Again left infrahilar calcified node and tiny left lower lobe calcified granuloma. There has been interval bilateral total hip arthroplasty with extreme beam artifact from bilateral prostheses limiting these levels. Noncontrasted stomach and bowel loops appear nonobstructed. Normal appendix. Again descending colonic diverticulosis without diverticulitis. No free fluid/air. Urinary bladder is markedly distended concerning for outlet obstruction versus neurogenic bladder. New tiny bladder stones right posterior laterally. Also intraluminal air presumed related to attempted Davis catheter insertion. Davis balloon tip seen at the base of the urethra with several tiny air bubbles. Stable hepatic/splenic calcified granulomas. Remaining liver, gallbladder, pancreas, spleen, adrenal glands, kidneys, and ureters appear unremarkable for noncontrast exam. Again mild scattered aortoiliac calcifications without AAA. Stable left main renal artery stent graft. Osseous structures intact with mild degenerative spondylosis. Impression: 1. Distended urinary bladder. Rule out outlet obstruction versus neurogenic bladder. New tiny posterior stones. 2. New Davis catheter with balloon tip at the base of the urethra with adjacent tiny air bubbles and urinary bladder intraluminal air presumed related to catheter insertion. 3. Again colonic diverticulosis and evidence for old granulomatous disease. Comment: Preliminary interpretation was made by [facility]. Urinary bladder calculi not reported and is incidental finding. CTDI 26.40
--- NOTE | 2017-12-01 07:16 | XRAY ---
Indication: Abdominal pain. Elevated WBC. Comparison: July 25, 2016. Portable chest remains clear again with evidence for old granulomatous disease and CABG surgery. Heart is not enlarged. Bony thorax intact. No new/acute findings.
== END 2017-12-01 01:30 | disposition short-term general hospital (02) ==
LOC: ED 21:47
DX: N13.9 Obstructive and reflux uropathy, unspecified (principal); A41.9 Sepsis, unspecified organism; N39.0 Urinary tract infection, site not specified; E78.00 Pure hypercholesterolemia, unspecified; I10 Essential (primary) hypertension; I25.2 Old myocardial infarction; M19.90 Unspecified osteoarthritis, unspecified site; K21.9 Gastro-esophageal reflux disease without esophagitis; Z86.73 Personal history of transient ischemic attack (TIA), and cerebral infarction without residual deficits; E78.5 Hyperlipidemia, unspecified; Z98.61 Coronary angioplasty status
CPT/HCPCS: 36000; 36415; 51702; 71045; 74176; 80053; 81000; 82150; 83605; 83690; 85025; 85610; 85730; 87040; 87077; 87086; 87186; 93005; 96360; 96365; 99285; 99291; J0696

== ENCOUNTER 2018-03-01 22:05 | Emergency (ER) | payer MEDICARE ==
[2018-03-01] MEDS ORDERED: XYLOCAINE 2% Uro-Jet ONE (22:18)
--- NOTE | 2018-03-01 22:43 | ERPHSYRPT ---
- History of Present Illness Time Seen by Provider: 03/01/18 22:39 Source: patient, EMS Exam Limitations: no limitations Physician History: Patient has chronic indwelling catheter which was placed month ago due to stroke and urinary retention which has been leaking . Timing/Duration: today Associated Symptoms: denies symptoms Allergies/Adverse Reactions: NSAIDS (Non-Steroidal Anti-Inflamma Allergy (Verified 09/14/17 06:46) Home Medications: Amlodipine Besylate 10 mg [Norvasc 10 MG] 10 mg PO DAILY 10/14/15 [History] Cholecalciferol (Vitamin D3) [Vitamin D] 1,000 unit PO DAILY 10/14/15 [ History] Clonidine HCl 0.2 mg PO BID 10/14/15 [History] Ezetimibe 10 mg [Zetia 10 MG] 10 mg PO DAILY 10/14/15 [History] Fluoxetine HCl 10 mg [Prozac 10 mg] 10 mg PO DAILY 10/14/15 [History] Losartan Potassium 50 mg [Cozaar 50 MG] 50 mg PO DAILY 10/14/15 [History] Omeprazole 20 MG [Prilosec 20 mg] 20 mg PO DAILY 10/14/15 [History] Aspirin EC 325 mg [Ecotrin 325 MG] 325 mg PO DAILY 07/25/16 [History] Medroxyprogesterone Acetate [Depo-Provera] 150 mg IM UD 07/25/16 [History] Hx Tetanus, Diphtheria Vaccination/Date Given: Yes Hx Influenza Vaccination/Date Given: Yes Hx Pneumococcal Vaccination/Date Given: No - Past Medical History Pertinent Past Medical History: Yes Neurological History: Stroke ENT History: Other Cardiac History: High Cholesterol, Hypertension, Myocardial Infarction ([place]), Other Respiratory History: No Pertinent History Endocrine Medical History: No Pertinent History Musculoskeletal History: Arthritis, Fractures GI Medical History: GERD History: Other Psycho-Social History: No Pertinent History Male Reproductive Disorders: No Pertinent History Other Medical History: CABG 1999, URETER STENT 2001, BRAIN STEM CVA, HERNIA REPAIR x 2, BLIND IN LEFT EYE - Past Surgical History Past Surgical History: Yes Neuro Surgical History: No Pertinent History Cardiac: Angioplasty, CABG, Cardiac Catheterization, Cardiac Stent Respiratory: No Pertinent History Gastrointestinal: Hernia Repair Genitourinary: Other Musculoskeletal: Joint Replacement, Other Male Surgical History: No Pertinent History Other Surgical History: STENT IN KIDNEY, CABG 1999, R Hip replacement, L thumb surgical repair w/ pin, right hip replacement - Social History Smoking Status: Never smoker Exposure to second hand smoke: No Drug Use: none Patient Lives Alone: No - Review of Systems Constitutional: No Fever, No Chills Eyes: No Symptoms Ears, Nose, & Throat: No Symptoms Respiratory: No Cough, No Dyspnea Cardiac: No Chest Pain, No Edema, No Syncope Abdominal/Gastrointestinal: No Abdominal Pain, No Nausea, No Vomiting, No Diarrhea Genitourinary Symptoms: Other (urinary catheter leak), No Dysuria Musculoskeletal: No Back Pain, No Neck Pain Skin: No Rash Neurological: No Dizziness, No Focal Weakness, No Sensory Changes Psychological: No Symptoms Endocrine: No Symptoms All Other Systems: Reviewed and Negative - Nursing Vital Signs Nursing Vital Signs: Initial Vital Signs Temperature 98.6 F 03/01/18 22:44 Pulse Rate 56 L 03/01/18 22:44 Respiratory Rate 18 03/01/18 22:44 Blood Pressure 147/80 03/01/18 22:44 O2 Sat by Pulse Oximetry 94 L 03/01/18 22:44 Pain Scale Pain Intensity 6 - Physical Exam General Appearance: no apparent distress Gastrointestinal/Abdomen Exam: soft, normal bowel sounds Male Genital Exam: normal genitalia - Course Nursing assessment & vital signs reviewed: Yes Ordered Tests: Active Orders 24 hr Category Date Time Status Donald [Catheter-[place] Donald] STAT Care 03/01/18 22:10 Active Medication Summary Discontinued Medications Generic Name Dose Route Start Last Admin Trade Name Freq PRN Reason Stop Dose Admin Lidocaine HCl Confirm 03/01/18 22:18 Xylocaine 2% Uro-Jet Administered 03/01/18 22:19 Dose 200 mg .ROUTE .STK-MED ONE - Progress Progress: improved Progress Note: 03/01/18 22:42 New donald catheter inserted without any problem. Counseled pt/family regarding: diagnosis, need for follow-up - Departure Time of Disposition: 22:43 Departure Disposition: Home Clinical Impression: Urinary obstruction, Catheter (urine) change required Condition: Stable Critical Care Time: No Referrals: BROOK CHAN [Primary Care Provider] - Instructions: Urinary Retention (DC)
[2018-03-02 01:55] VITALS: O2SAT 95
[2018-03-02 02:58] VITALS: BP 158/71; PULSE 56
== END 2018-03-02 02:58 ==
LOC: ED 22:05
DX: N13.9 Obstructive and reflux uropathy, unspecified (principal); Z46.6 Encounter for fitting and adjustment of urinary device
CPT/HCPCS: 51702; 99284

== ENCOUNTER 2018-05-11 19:46 | Emergency (ER) | payer MEDICARE ==
--- NOTE | 2018-05-11 19:55 | ERPHSYRPT ---
- History of Present Illness Time Seen by Provider: 05/11/18 19:51 Source: patient, EMS Physician History: 72 y/o white male presents from [facility] via EMS for complaint of itching and fever. pt states only other sx is a mild cough. pt denies cp, denies soa, denies abd pain. he denies flu like sx and denies n/v/d Timing/Duration: today Severity: mild Associated Symptoms: fever (none on arrival), other (itching) Allergies/Adverse Reactions: NSAIDS (Non-Steroidal Anti-Inflamma Allergy (Verified 09/14/17 06:46) Home Medications: Amlodipine Besylate 10 mg [Norvasc 10 MG] 10 mg PO DAILY 10/14/15 [History] Cholecalciferol (Vitamin D3) [Vitamin D] 1,000 unit PO DAILY 10/14/15 [ History] Clonidine HCl 0.2 mg PO BID 10/14/15 [History] Ezetimibe 10 mg [Zetia 10 MG] 10 mg PO DAILY 10/14/15 [History] Fluoxetine HCl 10 mg [Prozac 10 mg] 10 mg PO DAILY 10/14/15 [History] Losartan Potassium 50 mg [Cozaar 50 MG] 50 mg PO DAILY 10/14/15 [History] Omeprazole 20 MG [Prilosec 20 mg] 20 mg PO DAILY 10/14/15 [History] Aspirin EC 325 mg [Ecotrin 325 MG] 325 mg PO DAILY 07/25/16 [History] Medroxyprogesterone Acetate [Depo-Provera] 150 mg IM UD 07/25/16 [History] Hx Tetanus, Diphtheria Vaccination/Date Given: Yes Hx Influenza Vaccination/Date Given: Yes Hx Pneumococcal Vaccination/Date Given: No - Review of Systems Constitutional: Fever (none on arrival) Eyes: No Symptoms Ears, Nose, & Throat: No Symptoms Respiratory: No Symptoms (mild), Cough, No Dyspnea, No Stridor, No Wheezing Cardiac: No Symptoms, No Chest Pain, No Palpitations, No Syncope Abdominal/Gastrointestinal: No Symptoms, No Abdominal Pain, No Nausea, No Vomiting, No Diarrhea Genitourinary Symptoms: No Symptoms Musculoskeletal: No Symptoms Skin: No Symptoms Neurological: No Symptoms Psychological: No Symptoms Endocrine: No Symptoms Hematologic/Lymphatic: No Symptoms Immunological/Allergic: No Symptoms All Other Systems: Reviewed and Negative - Past Medical History Pertinent Past Medical History: Yes Neurological History: Stroke ENT History: Other Cardiac History: High Cholesterol, Hypertension, Myocardial Infarction ([place]), Other Respiratory History: No Pertinent History Endocrine Medical History: No Pertinent History Musculoskeletal History: Arthritis, Fractures GI Medical History: GERD History: Other Psycho-Social History: No Pertinent History Male Reproductive Disorders: No Pertinent History Other Medical History: CABG 1999, URETER STENT 2001, BRAIN STEM CVA, HERNIA REPAIR x 2, BLIND IN LEFT EYE - Past Surgical History Past Surgical History: Yes Neuro Surgical History: No Pertinent History Cardiac: Angioplasty, CABG, Cardiac Catheterization, Cardiac Stent Respiratory: No Pertinent History Gastrointestinal: Hernia Repair Genitourinary: Other Musculoskeletal: Joint Replacement, Other Male Surgical History: No Pertinent History Other Surgical History: STENT IN KIDNEY, CABG 1999, R Hip replacement, L thumb surgical repair w/ pin, right hip replacement - Social History Smoking Status: Never smoker Exposure to second hand smoke: No Drug Use: none Patient Lives Alone: No - Nursing Vital Signs Nursing Vital Signs: Initial Vital Signs Temperature 98.7 F 05/11/18 19:50 Pulse Rate 59 L 05/11/18 19:50 Respiratory Rate 16 05/11/18 19:50 Blood Pressure 165/84 05/11/18 19:50 O2 Sat by Pulse Oximetry 98 05/11/18 19:50 Pain Scale Pain Intensity 0 - Physical Exam General Appearance: no apparent distress, alert Eye Exam: PERRL/EOMI Ears, Nose, Throat Exam: normal ENT inspection, moist mucous membranes Neck Exam: normal inspection, non-tender, supple, full range of motion Respiratory Exam: normal breath sounds, lungs clear, airway intact, No chest tenderness, No respiratory distress, No accessory muscle use, No rhonchi, No wheezing, No stridor Cardiovascular Exam: regular rate/rhythm, normal heart sounds, normal peripheral pulses Gastrointestinal/Abdomen Exam: soft, normal bowel sounds, No tenderness, No guarding, No rebound Rectal Exam: not done Neurologic Exam: alert, oriented x 3, cooperative Skin Exam: normal color, warm, dry Lymphatic Exam: No adenopathy SpO2 Interpretation: normal Oxygen Delivery: Room Air - Course Nursing assessment & vital signs reviewed: Yes Ordered Tests: Active Orders 24 hr Category Date Time Status IV Insertion STAT Care 05/11/18 19:55 Active CHEST 1 VIEW (PORTABLE) Stat Exams 05/11/18 19:56 Taken BMP Stat Lab 05/11/18 21:00 Completed CBC W DIFF Stat Lab 05/11/18 19:55 Completed CULTURE,URINE Stat Lab 05/11/18 21:00 Received UA W/RFX UR CULTURE Stat Lab 05/11/18 21:00 Completed Medication Summary Discontinued Medications Generic Name Dose Route Start Last Admin Trade Name Maxime PRN Reason Stop Dose Admin Diphenhydramine HCl 12.5 mg 05/11/18 21:21 05/11/18 21:26 Benadryl 50 Mg/Ml IV 05/11/18 21:22 12.5 mg STAT ONE Administration Diphenhydramine HCl Confirm 05/11/18 21:24 Benadryl 50 Mg/Ml Administered 05/11/18 21:25 Dose 50 mg .ROUTE .STK-MED ONE Sodium Chloride 500 mls @ 500 mls/hr 05/11/18 19:56 05/11/18 21:40 Sodium Chloride 0.9% 500 Ml IV 05/11/18 20:55 Infused .Q1H ONE Infusion Sodium Chloride Confirm 05/11/18 20:39 Sodium Chloride 0.9% 500 Ml Administered 05/11/18 20:40 Dose 500 mls @ ud IV .STK-MED ONE Ceftriaxone Sodium/Dextrose 1 g in 50 mls @ 100 mls/hr 05/11/18 21:57 22:13 Rocephin 1 Gm-D5w 50 Ml Bag IV 05/11/18 22:26 100 ml/hr STAT STA 100 mls/hr Administration Ceftriaxone Sodium/Dextrose Confirm 05/11/18 22:10 Rocephin 1 Gm-D5w 50 Ml Bag Administered 05/11/18 22:11 Dose 1 g in 50 mls @ ud IV .STK-MED ONE Lidocaine HCl Confirm 05/11/18 19:58 Xylocaine 2% Uro-Jet Administered 05/11/18 19:59 Dose 200 mg .ROUTE .STK-MED ONE Lidocaine HCl 200 mg 05/11/18 20:22 05/11/18 20:24 Xylocaine 2% Uro-Jet TOP 05/11/18 20:23 200 mg STAT ONE Administration Methylprednisolone Sodium Succinate 60 mg 05/11/18 21:22 05/11/18 21:27 Solu-Medrol 125 Mg IV 05/11/18 21:23 60 mg STAT ONE Administration Methylprednisolone Sodium Succinate Confirm 05/11/18 21:24 Solu-Medrol 125 Mg Administered 05/11/18 21:25 Dose 125 mg .ROUTE .STK-MED ONE Lab/Rad Data: Laboratory Result Diagrams 05/11/18 19:55 05/11/18 21:00 Laboratory Results 05/11/18 05/11/18 05/11/18 Range/Units 21:00 21:00 19:55 WBC 12.6 H (4.0-10.5) K/mm3 RBC 5.21 (4.1-5.6) M/mm3 Hgb 14.4 (12.5-18.0) gm/dl Hct 42.8 (42-50) % MCV 82.1 (78-100) fl MCH 27.6 (26-32) pg MCHC 33.6 (32-36) g/dl RDW 15.3 H (11.5-14.0) % Plt Count 237 (150-450) K/mm3 MPV 9.3 (6-9.5) fl Gran % 61.2 (36.0-66.0) % Eos # (Auto) 1.07 H (0-0.5) Absolute Lymphs (auto) 2.84 (1.0-4.6) Absolute Monos (auto) 0.96 (0.0-1.3) Lymphocytes % 22.5 L (24.0-44.0) % Monocytes % 7.6 (0.0-12.0) % Eosinophils % 8.5 H (0.00-5.0) % Basophils % 0.2 (0.0-0.4) % Absolute Granulocytes 7.74 H (1.4-6.9) Basophils # 0.03 (0-0.4) Sodium 143 (137-145) mmol/L Potassium 4.0 (3.5-5.1) mmol/L Chloride 107 (98-107) mmol/L Carbon Dioxide 21 L (22-30) mmol/L Anion Gap 19.2 H (5-15) MEQ/L BUN 24 H (9-20) mg/dL Creatinine 1.30 H (0.66-1.25) mg/dL Estimated GFR 57.8 ML/MIN Glucose 93 (74-106) mg/dL Calcium 9.3 (8.4-10.2) mg/dL Urine Color YELLOW (YELLOW) Urine Appearance CLOUDY (CLEAR) Urine pH 8.0 (5-6) Ur Specific [place] 1.020 (1.005-1.025) Urine Protein 100 (Negative) Urine Ketones NEGATIVE (NEGATIVE) Urine Blood NEGATIVE (0-5) [place]/ul Urine Nitrite NEGATIVE (NEGATIVE) Urine Bilirubin NEGATIVE (NEGATIVE) Urine Urobilinogen NEGATIVE (0-1) mg/dL Ur Leukocyte Esterase LARGE (NEGATIVE) Urine WBC (Auto) >100 (0-5) /HPF Urine RBC (Auto) 11-15 (0-2) /HPF U Epithel Cells (Auto) NONE (FEW) /HPF Urine Bacteria (Auto) MODERATE (NEGATIVE) /HPF Urine Mucus (Auto) SLIGHT (NEGATIVE) /HPF Urine Culture Reflexed YES (NO) Urine Glucose NEGATIVE (NEGATIVE) mg/dL - Progress Progress: improved, re-examined Progress Note: 05/11/18 22:50 pt states itching resolved after benadryl and solumedrol Counseled pt/family regarding: lab results, diagnosis - Departure Time of Disposition: 22:52 Departure Disposition: Home Clinical Impression: Fever, UTI (urinary tract infection), Itch of skin Condition: Stable Critical Care Time: No Referrals: BROOK CHAN [Primary Care Provider] - Prescriptions: Levofloxacin [Levaquin 500 MG Tablet] 500 mg PO DAILY #7 tablet
[2018-05-11] MEDS ORDERED: Sodium Chloride 0.9% 500 ML 500 ML IV ONE ×2 (19:56→20:39)
[2018-05-11] MEDS ORDERED: XYLOCAINE 2% Uro-Jet ONE (19:58)
[2018-05-11] MEDS ORDERED: XYLOCAINE 2% Uro-Jet TOP ONE (20:22)
[2018-05-11 21:06] LABS: BASOPHIL % 0.2 % (0.0-0.4); Basophil (Absolute #) 0.03 (0-0.4); Eosinophil % 8.5 % (0.00-5.0); Eosinophil (Absolute #) 1.07 (0-0.5); Granulocytes % 61.2 % (36.0-66.0); Hematocrit 42.8 % (42-50); Hemoglobin 14.4 gm/dl (12.5-18.0); Lymphocyte (Absolute #) 2.84 (1.0-4.6); Lymphocytes % 22.5 % (24.0-44.0); Mean Cell Volume 82.1 fl (78-100); Mean Corpuscular Hemoglobin 27.6 pg (26-32); Mean Corpuscular Hgb Concent. 33.6 g/dl (32-36); Mean Platelet Volume 9.3 fl (6-9.5); Monocyte (Absolute #) 0.96 (0.0-1.3); Monocytes % 7.6 % (0.0-12.0); Platelet Count 237 K/mm3 (150-450); Red Blood Count 5.21 M/mm3 (4.1-5.6); Red Cell Distribution Width 15.3 % (11.5-14.0); White Blood Count 12.6 K/mm3 (4.0-10.5)
[2018-05-11 21:10] VITALS: PULSE 52
[2018-05-11 21:19] LABS: Appearance CLOUDY (CLEAR); Bacteria MODERATE /HPF (NEGATIVE); Bilirubin NEGATIVE (NEGATIVE); Blood NEGATIVE Ery/ul (0-5); Glucose NEGATIVE (NEGATIVE); Ketones NEGATIVE (NEGATIVE); Leukocyte Esterase LARGE (NEGATIVE); Mucus SLIGHT /HPF (NEGATIVE); Nitrite NEGATIVE (NEGATIVE); Protein,Urine Dip 100 (Negative); Urobilinogen NEGATIVE mg/dL (0-1); WBC >100 /HPF (0-5)
[2018-05-11] MEDS ORDERED: BENADRYL 50 MG/ML IV ONE (21:21)
[2018-05-11] MEDS ORDERED: solu-MEDROL 125 MG IV ONE (21:22)
[2018-05-11 21:24] LABS: ANION GAP 19.2 MEQ/L (5-15); Calcium 9.3 mg/dL (8.4-10.2); Creatinine 1 1.3 mg/dL (0.66-1.25)
[2018-05-11] MEDS ORDERED: BENADRYL 50 MG/ML ONE (21:24)
[2018-05-11] MEDS ORDERED: solu-MEDROL 125 MG ONE (21:24)
[2018-05-11] MEDS ORDERED: ROCEPHIN 1 Gm-D5w 50 ml Bag** 1 G/50 ML IVPB IV STA (21:57)
[2018-05-11] MEDS ORDERED: ROCEPHIN 1 Gm-D5w 50 ml Bag** 1 G/50 ML IVPB IV ONE (22:10)
[2018-05-11 23:01] VITALS: BP 175/101; O2SAT 96
--- NOTE | 2018-05-12 08:38 | XRAY ---
Indication: Fever and cough. Comparison: November 30, 2017. Portable chest remains clear again with left hilar calcified nodes and CABG surgery. Heart is not enlarged for AP portable technique. Bony thorax intact again with mild degenerative changes. Impression: Stable nonacute chest with chronic features.
== END 2018-05-11 23:20 ==
LOC: ED 19:46
DX: R50.9 Fever, unspecified (principal); N39.0 Urinary tract infection, site not specified; L29.9 Pruritus, unspecified; I10 Essential (primary) hypertension; Z79.899 Other long term (current) drug therapy
CPT/HCPCS: 36000; 36415; 51702; 71045; 80048; 81001; 85025; 87077; 87086; 87186; 96365; 96374; 96375; 99285; J0696; J1200; J2930